=== PATIENT | female | born 1955 | race Caucasian/White ===

== ENCOUNTER 2020-02-20 12:52 | Outpatient (REF) | payer MEDICARE, SELFPAY ==
[2020-02-20 13:05] LABS: MANUAL DIFF FLAG NO
[2020-02-20 13:08] LABS: Basophils Absolute Auto 0.2 X10*3/uL (0.0-0.2); Basophils Percent Auto 1.4 % (0-2); Eosinophils Absolute Auto 0.2 X10*3/uL (0.0-0.4); Eosinophils Percent Auto 1.5 % (0-4); Hematocrit 47.5 % (37-47); Hemoglobin 14.9 g/dl (12.0-16.0); Imm Gran Abs Auto 0.06 X10*3/uL (0.00-0.03); Imm Gran Pct Auto 0.5 % (0.0-0.4); Lymphocytes Absolute Auto 1.4 X10*3/uL (1.2-4.9); Lymphocytes Percent Auto 12.2 % (20-40); Mean Corpuscular HGB Conc 31.4 g/dl (31.0-35.0); Mean Corpuscular Hemoglobin 28.6 pg (27.0-33.0); Mean Corpuscular Volume 91.2 fL (80-98); Mean Platelet Volume 10.5 fL (9.4-12.3); Monocytes Absolute Auto 0.3 X10*3/uL (0.1-1.2); Monocytes Percent Auto 2.2 % (2-11); Neutrophils Absolute Auto 9.5 X10*3/uL (2.0-8.3); Neutrophils Percent Auto 82.2 % (45-73); Platelet Count 366 X10*3/uL (160-400); Red Blood Count 5.21 X10*6/uL (4.20-5.50); Red Cell Distribution Width 15.9 % (11.0-16.0); White Blood Count 11.5 X10*3/uL (4.8-10.8)
[2020-02-20 13:35] LABS: Alanine Aminotransferase 29 U/L (0-31); Albumin Level 4.4 g/dL (3.5-5.0); Alkaline Phosphatase 66 U/L (39-117); Anion Gap 12 (12-20); Aspartate Amino Transferase 17 U/L (5-31); Bilirubin Total 0.9 mg/dL (0.0-1.0); Blood Urea Nitrogen 15 mg/dL (9-16); Carbon Dioxide 27 mmol/L (22-29); Chloride 104 mmol/L (96-108); Estimated Glomerular Filt Rate > 60; Glucose Random 114 mg/dL (60-115); Potassium 4.1 mmol/l (3.3-5.1); Sodium 139 mmol/L (135-145); Total Protein 6.7 g/dL (6.5-8.0)
--- NOTE | 2020-03-27 15:14 | PC.NURSE ---
Dr Cardozo scheduled patient for a GI appt with Emi Sotelo for 04/04/2020 at 9:30am. I called and spoke with patient, gave her the time and details and the providers name- patient is ok with this and is very grateful for Dr Cardozo.
== END 2020-02-20 12:53 | disposition home or self-care (01) ==
LOC: HO.BBR 12:52
PROVIDERS: Visit Provider Internal Medicine Medical Oncology
DX: D75.1 Secondary polycythemia (principal)
CPT/HCPCS: 36415; 80053; 85018; 85025; 99195

== ENCOUNTER 2020-03-31 12:46 | Outpatient (REF) | payer MEDICARE, SELFPAY | END 2020-03-31 12:47 | disposition home or self-care (01) | LOC: HO.BBR 12:46 | PROVIDERS: Visit Provider Internal Medicine Medical Oncology | DX: D75.1 Secondary polycythemia (principal) | CPT/HCPCS: 36415; 85018; 99195 ==

== ENCOUNTER → 2020-04-04 09:11 | Outpatient (BNVA) | payer MEDICARE, SELFPAY | PROVIDERS: PCP Internal Medicine; Referring Provider Internal Medicine; Visit Provider Nurse Practitioner | DX: K62.5 Hemorrhage of anus and rectum (principal); R19.5 Other fecal abnormalities; K64.4 Residual hemorrhoidal skin tags; Z86.010 Personal history of colon polyps; Z85.43 Personal history of malignant neoplasm of ovary | CPT/HCPCS: Q3014 ==

== ENCOUNTER 2020-05-27 11:07 | Day surgery (SDC) | payer MEDICARE, SELFPAY ==
[2020-05-22 10:20] VITALS: BMI 37.4
--- NOTE | 2020-05-26 09:24 | HO.ANESPROP2 ---
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 Thrombocytosis Family History Family History Father Heart disease Myocardial infarction Mother HTN (hypertension) Sister Polycythemia vera Surgical History Surgical History History of back surgery (~2017) History of esophagogastroduodenoscopy (EGD) (~2011) Hx of colonoscopy (~2012) Hx of nasal polypectomy Hx of oophorectomy (~2009) Social History Social History Alcohol intake: current Alcohol intake frequency: does not drink Smoking Status: Current every day smoker Tobacco Type: E-Cigarette Smoked in Last 30 Days: Yes Smoking Quit Date: quit cigarettes 2009-currently vapes Use of substances other than those prescribed or required for medical reasons: No Advance Directives Information Provided: No Recently lost weight without trying: No Meds Allergies Allergy/AdvReac Type Severity Reaction Status Date / Time mold AdvReac Intermediate GI UPSET Verified 05/27/20 11:24 animal dander AdvReac Mild NASAL Verified 05/27/20 11:24 STUFFY Home Medications Medication Instructions Recorded Confirmed Type aspirin [Aspir-81] 81 mg PO DAILY 03/27/20 05/22/20 History diazepam 1 tab PO BEDTIME 03/27/20 05/22/20 History gabapentin 2 cap PO BEDTIME 03/27/20 05/22/20 History hydroxyurea 500 mg PO BID 03/27/20 05/22/20 History lisinopril 20 mg PO DAILY 03/27/20 05/22/20 History sertraline 50 mg PO QAM 03/27/20 05/22/20 History trazodone 50 mg PO BEDTIME 03/27/20 05/22/20 History Exam Exam Date and Time: May 26, 2020 0924 Height,Weight and Vital Signs: Height 5 ft 7 in Weight 108.409 kg Pertinent Lab Results Pertinent Lab Results: Laboratory Tests 02/20/20 02/20/20 13:03 13:03 WBC 11.5 H Hgb 14.9 Hct 47.5 H Plt Count 366 Sodium 139 Potassium 4.1 Chloride 104 Carbon Dioxide 27 BUN 15 Creatinine 0.81 Assessment and Plan Assessment Anesthesia Assessment: Chart Reviewed Documented by User: Porsche Buchanan 05/27/20 11:47 PMFSH Past Medical History Medical History Arthritis Back pain Depression HTN (hypertension) 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 Thrombocytosis Family History Family History Father Heart disease Myocardial infarction Mother HTN (hypertension) Sister Polycythemia vera Surgical History Surgical History History of back surgery (~2017) History of esophagogastroduodenoscopy (EGD) (~2011) Hx of colonoscopy (~2012) Hx of nasal polypectomy Hx of oophorectomy (~2009) Social History Social History Alcohol intake: current Alcohol intake frequency: does not drink Smoking Status: Current every day smoker Tobacco Type: E-Cigarette Smoked in Last 30 Days: Yes Smoking Quit Date: quit cigarettes 2009-currently vapes Use of substances other than those prescribed or required for medical reasons: No Advance Directives Information Provided: No Recently lost weight without trying: No Meds Allergies Allergy/AdvReac Type Severity Reaction Status Date / Time mold AdvReac Intermediate GI UPSET Verified 05/27/20 11:24 animal dander AdvReac Mild NASAL Verified 05/27/20 11:24 STUFFY Home Medications Medication Instructions Recorded Confirmed Type aspirin [Aspir-81] 81 mg PO DAILY 03/27/20 05/22/20 History diazepam 1 tab PO BEDTIME 03/27/20 05/22/20 History gabapentin 2 cap PO BEDTIME 03/27/20 05/22/20 History hydroxyurea 500 mg PO BID 03/27/20 05/22/20 History lisinopril 20 mg PO DAILY 03/27/20 05/22/20 History sertraline 50 mg PO QAM 03/27/20 05/22/20 History trazodone 50 mg PO BEDTIME 03/27/20 05/22/20 History Exam Airway Mallampati Class: II TM Dist: >3cm Neck ROM: Full Loose/Missing/Broken Teeth: No Heart: RRR Lungs: CTA Assessment and Plan Assessment Anesthesia Assessment: Anesthesia Plan Discussed and Chart Reviewed Final Anesthetic Review NPO: Yes ASA Class: II Final Preanesthetic Review: Meds/Allgs Chart Reviewed, Consent Obtained/Reviewed and Anes Risks/Benef Reviewed Patient Risk: Low Procedure Risk: Low Anesthetic Plan Anesthetic Plan: MAC: Disposition: Standard PACU
[2020-05-27 11:42] VITALS: BP 140/88; PULSE 90; RESP 18; TEMP 36.4; O2SAT 94
[2020-05-27] MEDS: Lactated Ringers 1,000 ML 100 ML IVCONT (11:54)
--- NOTE | 2020-05-27 12:03 | W.PM.OPN ---
Operative Note Operative Note Date of Service: 05/27/20 Narrative: Pre-op diagnosis: Colon cancer screening, rectal bleeding, intermittent diarrhea Post-op diagnosis: other (Diverticulosis and hemorrhoids) Procedure: COLONOSCOPY TO CECUM WITH BIOPSIES Consent: Indications for the procedure and potential complications of bleeding, perforation, reaction to medications and missed diagnosis were discussed with the patient and informed consent was obtained. Instrument: Olympus PCF H 190 L variable stiffness pediatric colonoscope Monitoring: Vital signs and clinical assessment, intermittent blood pressure monitoring, continuous EKG monitoring, Pulse oximetry and Carbon Dioxide monitoring were done throughout the procedure. Colon withdrawl time was 28 minutes. Procedure: The patient was placed in the left lateral decubitis position and pre-procedure medications were administered. After a digital rectal examination of the ano-rectum, the video colonoscope was inserted into the rectum and advanced through the colon to the cecum. The colonoscope was slowly withdrawn in a retrograde panoramic fashion and the colon mucosa was carefully examined including a retroflexed view of the rectum. Findings and interventions are described below. Procedure Difficulty: There was spasm and luminal narrowing with a sharp turn at 25 to 30 cms which was navigated with some difficulty Findings: Terminal Ileum: Distal 5 cms was examined and appeared normal. Random biopsies were obtained Cecum: Normal Ascending Colon: Normal Transverse Colon: Normal Descending Colon: Moderate diverticulosis. Sigmoid Colon: Severe diverticulosis with luminal narrowing Rectum: Normal Ano-rectum: Large inflammed and internal hemorrhoids with an ulcer on one hemorrhoid - likely source of rectal bleeding Colon preparation: Good after some irrigation Impression and Post Procedure Diagnosis: Colonoscopy Findings: No polyps were detected. Random biopsies were obtained from the colon and TI to look for IBD/microscopic colitis. Moderate to severe diverticulosis seen in the left colon Large inflammed hemorrhoids with an ulcer on retroflexed exam - likely source of patient's rectal bleeding. Plan: Await pathology results Patient has an appointment on 06/03/20 in the GI Clinic with Emi Sotelo NP. Repeat Colonoscopy in 10 yrs. Above findings were reviewed with the patient and Hemorrhoids and diverticulosis handouts were given in the discharge area. Pt was advised to use Hydrcortisone cream, psyllium powder and sitz baths daily. If bleeding persists, she can be referred to Dr Jones for Band ligation of hemorrhoids. Surgeon: Chip Narvaez MD Anesthesia: MAC (DR Buchanan and [employer]ESS[employer] Cuff) Estimated blood loss (mL): 0 Pathology: other (A. TI, B. Random colon bx) Condition: stable Disposition: PACU
--- NOTE | 2020-05-27 12:03 | MHC.SHP ---
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 Thrombocytosis) History of Previous Operations: Relevant previous surgery/procedure and date(s) (History of back surgery (~2017) History of esophagogastroduodenoscopy (EGD) (~2011) Hx of colonoscopy (~2012) Hx of nasal polypectomy Hx of oophorectomy (~2009)) Allergies: Allergies Allergy/AdvReac Type Severity Reaction Status Date / Time mold AdvReac Intermediate GI UPSET Verified 05/27/20 11:24 animal dander AdvReac Mild NASAL Verified 05/27/20 11:24 STUFFY Review of Systems Sugical H&P ROS: Negative: Constitution, Cardiovascular and Respiratory and Yes, Specify: Gastrointestinal (Intermittent diarrhea and rectal bleeding) Exam Surgical H&P Exam: Normal: Heart, Normal: Lungs, Normal: Extremities and Normal: Abdomen Plan Diagnosis/Plan: Unchanged I have reviewed the history and physical and performed a pertinent physical examination on my patient. No changes have occurred unless specified.
[2020-05-27 13:05] VITALS: BP 94/59; PULSE 85; RESP 18; TEMP 36.2; O2SAT 95
[2020-05-27 13:17] VITALS: BP 108/66; PULSE 72; RESP 18; O2SAT 98
[2020-05-27 13:33] VITALS: BP 126/53; PULSE 80; RESP 18; TEMP 36.2; O2SAT 96
--- NOTE | 2020-05-27 14:12 | HO.POSTANES ---
Post Anesthesia Evaluation Post Anesthesia Evaluation Vital Signs: Vital Signs Temp Pulse Resp BP Pulse Ox 05/27/20 13:33 97.2 F 80 18 126/53 L 96 05/27/20 13:17 72 18 108/66 98 05/27/20 13:05 97.2 F 85 18 94/59 L 95 05/27/20 11:42 97.5 F 90 18 140/88 H 94 Anesthesia: Monitored Mental Status: Awake Pain Control: Satisfactory Nausea/Vomiting: None Hydration: Adequate Anesthesia-Related Issues: No Anes. Related Issues
== END 2020-05-27 13:55 ==
LOC: HO.SSS 11:07
PROVIDERS: PCP Internal Medicine; Visit Provider Internal Medicine Gastroenterology
PROC: 0DJD8ZZ Inspection of Lower Intestinal Tract, Via Natural or Artificial Opening Endoscopic (ICD-10-PCS; CPT 45378; principal; 2020-05-27 12:30)
DX: Z12.11 Encounter for screening for malignant neoplasm of colon (principal); K57.30 Diverticulosis of large intestine without perforation or abscess without bleeding; K64.8 Other hemorrhoids; I10 Essential (primary) hypertension; D45 Polycythemia vera; F32.9 Major depressive disorder, single episode, unspecified; F17.290 Nicotine dependence, other tobacco product, uncomplicated; Z79.82 Long term (current) use of aspirin; Z79.899 Other long term (current) drug therapy
CPT/HCPCS: G0121; 88305; J2250

== ENCOUNTER → 2020-06-03 15:46 | Outpatient (BNVA) | payer MEDICARE, SELFPAY | PROVIDERS: PCP Internal Medicine; Visit Provider Nurse Practitioner | DX: K64.9 Unspecified hemorrhoids (principal); K57.30 Diverticulosis of large intestine without perforation or abscess without bleeding | CPT/HCPCS: Q3014 ==

== ENCOUNTER 2020-06-12 12:49 | Outpatient (REF) | payer MEDICARE, SELFPAY | END 2020-06-12 12:50 | disposition home or self-care (01) | LOC: HO.BBR 12:49 | PROVIDERS: Visit Provider Internal Medicine Medical Oncology | DX: D75.1 Secondary polycythemia (principal) | CPT/HCPCS: 36415; 85014; 85018; 99195 ==

== ENCOUNTER 2020-07-15 12:46 | Outpatient (REF) | payer MEDICARE, SELFPAY | END 2020-07-15 12:47 | disposition home or self-care (01) | LOC: HO.BBR 12:46 | PROVIDERS: Visit Provider Internal Medicine Medical Oncology | DX: D75.1 Secondary polycythemia (principal) | CPT/HCPCS: 85018; 99195; Q3014 ==

== ENCOUNTER 2020-08-15 12:34 | Outpatient (REF) | payer MEDICARE, SELFPAY ==
[2020-08-15 12:59] LABS: Basophils Absolute Auto 0.3 X10*3/uL (0.0-0.2); Basophils Percent Auto 1.3 % (0-2); Eosinophils Absolute Auto 0.5 X10*3/uL (0.0-0.4); Eosinophils Percent Auto 1.9 % (0-4); Hematocrit 47.6 % (37-47); Hemoglobin 13.9 g/dl (12.0-16.0); Imm Gran Abs Auto 0.25 X10*3/uL (0.00-0.03); Imm Gran Pct Auto 1.1 % (0.0-0.4); Lymphocytes Absolute Auto 1.6 X10*3/uL (1.2-4.9); Lymphocytes Percent Auto 6.8 % (20-40); MANUAL DIFF FLAG SCAN; Mean Corpuscular HGB Conc 29.2 g/dl (31.0-35.0); Mean Corpuscular Hemoglobin 23.6 pg (27.0-33.0); Mean Corpuscular Volume 80.8 fL (80-98); Mean Platelet Volume 10.9 fL (9.4-12.3); Monocytes Absolute Auto 0.5 X10*3/uL (0.1-1.2); Monocytes Percent Auto 2.3 % (2-11); Neutrophils Absolute Auto 20.3 X10*3/uL (2.0-8.3); Neutrophils Percent Auto 86.6 % (45-73); Platelet Count 436 X10*3/uL (160-400); Red Blood Count 5.89 X10*6/uL (4.20-5.50); Red Cell Distribution Width 16.3 % (11.0-16.0); SCAN SMEAR FLAG 1; White Blood Count 23.4 X10*3/uL (4.8-10.8)
[2020-08-15 13:20] LABS: SLIDE REVIEW VERIFIED
[2020-08-15 13:25] LABS: Alanine Aminotransferase 41 U/L (0-31); Albumin Level 4.2 g/dL (3.5-5.0); Alkaline Phosphatase 87 U/L (39-117); Anion Gap 11 (12-20); Aspartate Amino Transferase 21 U/L (5-31); Bilirubin Total 1.2 mg/dL (0.0-1.0); Blood Urea Nitrogen 18 mg/dL (9-16); Calcium 8.9 mg/dL (8.4-10.2); Carbon Dioxide 29 mmol/L (22-29); Chloride 103 mmol/L (96-108); Estimated Glomerular Filt Rate > 60; Glucose Random 102 mg/dL (60-115); Potassium 4.3 mmol/L (3.3-5.1); Sodium 139 mmol/L (135-145); Total Protein 6.6 g/dL (6.5-8.0)
== END 2020-08-15 12:35 | disposition home or self-care (01) ==
LOC: HO.BBR 12:34
PROVIDERS: Visit Provider Internal Medicine Medical Oncology
DX: D75.1 Secondary polycythemia (principal)
CPT/HCPCS: 36415; 80053; 85018; 85025

== ENCOUNTER 2020-09-19 14:34 | Outpatient (REF) | payer MEDICARE, SELFPAY ==
[2020-09-19 14:51] LABS: MANUAL DIFF FLAG NO
[2020-09-19 14:55] LABS: Basophils Absolute Auto 0.4 X10*3/uL (0.0-0.2); Basophils Percent Auto 1.6 % (0-2); Eosinophils Absolute Auto 0.5 X10*3/uL (0.0-0.4); Eosinophils Percent Auto 2.1 % (0-4); Hematocrit 49.4 % (37-47); Hemoglobin 14.5 g/dl (12.0-16.0); Imm Gran Abs Auto 0.23 X10*3/uL (0.00-0.03); Lymphocytes Absolute Auto 1.8 X10*3/uL (1.2-4.9); Lymphocytes Percent Auto 7.8 % (20-40); Mean Corpuscular HGB Conc 29.4 g/dl (31.0-35.0); Mean Corpuscular Hemoglobin 23.7 pg (27.0-33.0); Mean Corpuscular Volume 80.6 fL (80-98); Mean Platelet Volume 11.3 fL (9.4-12.3); Monocytes Absolute Auto 0.6 X10*3/uL (0.1-1.2); Monocytes Percent Auto 2.8 % (2-11); Neutrophils Absolute Auto 19.6 X10*3/uL (2.0-8.3); Neutrophils Percent Auto 84.7 % (45-73); Platelet Count 298 X10*3/uL (160-400); Red Blood Count 6.13 X10*6/uL (4.20-5.50); Red Cell Distribution Width 18.1 % (11.0-16.0); White Blood Count 23.1 X10*3/uL (4.8-10.8)
[2020-09-19 15:31] LABS: Anion Gap 14 (12-20); Blood Urea Nitrogen 15 mg/dL (9-16); Calcium 9.2 mg/dL (8.4-10.2); Carbon Dioxide 26 mmol/L (22-29); Chloride 103 mmol/L (96-108); Estimated Glomerular Filt Rate > 60; Glucose Random 86 mg/dL (60-115); Potassium 4.4 mmol/L (3.3-5.1); Sodium 139 mmol/L (135-145)
== END 2020-09-19 14:35 | disposition home or self-care (01) ==
LOC: HO.BBR 14:34
PROVIDERS: Visit Provider Internal Medicine Medical Oncology
DX: D75.1 Secondary polycythemia (principal)
CPT/HCPCS: 36415; 80048; 85018; 85025; 99195

== ENCOUNTER → 2020-10-23 12:41 | Outpatient (BNV) | payer MEDICARE, SELFPAY | PROVIDERS: PCP Internal Medicine; Visit Provider Internal Medicine Medical Oncology | DX: D45 Polycythemia vera (principal); Z86.718 Personal history of other venous thrombosis and embolism; Z79.01 Long term (current) use of anticoagulants | CPT/HCPCS: 99213; 99214 ==

== ENCOUNTER 2020-10-23 13:28 | Outpatient (REF) | payer MEDICARE, SELFPAY | END 2020-10-23 13:29 | disposition home or self-care (01) | LOC: HO.BBR 13:28 | PROVIDERS: Visit Provider Internal Medicine Medical Oncology | DX: D45 Polycythemia vera (principal) | CPT/HCPCS: 99195 ==

== ENCOUNTER 2020-12-17 12:47 | Outpatient (REF) | payer MEDICARE, SELFPAY ==
[2020-12-17 13:08] LABS: Basophils Absolute Auto 0.4 X10*3/uL (0.0-0.2); Basophils Percent Auto 1.5 % (0-2); Eosinophils Absolute Auto 0.4 X10*3/uL (0.0-0.4); Eosinophils Percent Auto 1.6 % (0-4); Hematocrit 46.3 % (37-47); Hemoglobin 13.7 g/dl (12.0-16.0); Imm Gran Abs Auto 0.25 X10*3/uL (0.00-0.03); Lymphocytes Absolute Auto 1.9 X10*3/uL (1.2-4.9); Lymphocytes Percent Auto 7.3 % (20-40); MANUAL DIFF FLAG SCAN; Mean Corpuscular HGB Conc 29.6 g/dl (31.0-35.0); Mean Corpuscular Hemoglobin 23.4 pg (27.0-33.0); Mean Platelet Volume 10.5 fL (9.4-12.3); Monocytes Absolute Auto 0.6 X10*3/uL (0.1-1.2); Monocytes Percent Auto 2.3 % (2-11); Neutrophils Absolute Auto 22.4 X10*3/uL (2.0-8.3); Neutrophils Percent Auto 86.3 % (45-73); Platelet Count 350 X10*3/uL (160-400); Red Blood Count 5.86 X10*6/uL (4.20-5.50); Red Cell Distribution Width 17.7 % (11.0-16.0); SCAN SMEAR FLAG 1; White Blood Count 25.9 X10*3/uL (4.8-10.8)
[2020-12-17 13:26] LABS: SLIDE REVIEW VERIFIED
[2020-12-17 14:33] LABS: Alanine Aminotransferase 28 U/L (0-31); Albumin Level 4.2 g/dL (3.5-5.0); Alkaline Phosphatase 85 U/L (39-117); Anion Gap 13 (12-20); Aspartate Amino Transferase 19 U/L (5-31); Bilirubin Total 1.2 mg/dL (0.0-1.0); Blood Urea Nitrogen 22 mg/dL (9-16); Calcium 9.2 mg/dL (8.4-10.2); Carbon Dioxide 25 mmol/L (22-29); Chloride 104 mmol/L (96-108); Estimated Glomerular Filt Rate 54; Glucose Random 85 mg/dL (60-115); Potassium 4.3 mmol/L (3.3-5.1); Sodium 138 mmol/L (135-145); Total Protein 6.4 g/dL (6.5-8.0)
== END 2020-12-17 12:48 | disposition home or self-care (01) ==
LOC: HO.BBR 12:47
PROVIDERS: PCP Internal Medicine; Visit Provider Internal Medicine Medical Oncology
DX: D75.1 Secondary polycythemia (principal)
CPT/HCPCS: 36415; 80053; 85018; 85025; 99195

== ENCOUNTER 2021-01-16 12:45 | Outpatient (REF) | payer MEDICARE, SELFPAY ==
[2021-01-16 13:08] LABS: Basophils Absolute Auto 0.3 X10*3/uL (0.0-0.2); Basophils Percent Auto 1.4 % (0-2); Eosinophils Absolute Auto 0.3 X10*3/uL (0.0-0.4); Eosinophils Percent Auto 1.3 % (0-4); Hematocrit 48.8 % (37-47); Hemoglobin 14.6 g/dl (12.0-16.0); Imm Gran Abs Auto 0.24 X10*3/uL (0.00-0.03); Imm Gran Pct Auto 1.1 % (0.0-0.4); Lymphocytes Absolute Auto 1.3 X10*3/uL (1.2-4.9); MANUAL DIFF FLAG SCAN; Mean Corpuscular HGB Conc 29.9 g/dl (31.0-35.0); Mean Corpuscular Hemoglobin 24.2 pg (27.0-33.0); Mean Corpuscular Volume 80.8 fL (80-98); Mean Platelet Volume 10.1 fL (9.4-12.3); Monocytes Absolute Auto 0.4 X10*3/uL (0.1-1.2); Neutrophils Absolute Auto 19.8 X10*3/uL (2.0-8.3); Neutrophils Percent Auto 88.2 % (45-73); Platelet Count 259 X10*3/uL (160-400); Red Blood Count 6.04 X10*6/uL (4.20-5.50); Red Cell Distribution Width 19.5 % (11.0-16.0); SCAN SMEAR FLAG 1; White Blood Count 22.4 X10*3/uL (4.8-10.8)
[2021-01-16 13:35] LABS: SLIDE REVIEW VERIFIED
[2021-01-16 13:42] LABS: Alanine Aminotransferase 32 U/L (0-31); Albumin Level 4.3 g/dL (3.5-5.0); Alkaline Phosphatase 93 U/L (39-117); Anion Gap 12 (12-20); Aspartate Amino Transferase 21 U/L (5-31); Bilirubin Total 1.6 mg/dL (0.0-1.0); Blood Urea Nitrogen 14 mg/dL (9-16); Calcium 9.4 mg/dL (8.4-10.2); Carbon Dioxide 26 mmol/L (22-29); Chloride 103 mmol/L (96-108); Estimated Glomerular Filt Rate > 60; Glucose Random 114 mg/dL (60-115); Potassium 4.1 mmol/L (3.3-5.1); Sodium 137 mmol/L (135-145); Total Protein 6.5 g/dL (6.5-8.0)
== END 2021-01-16 12:46 | disposition home or self-care (01) ==
LOC: HO.BBR 12:45
PROVIDERS: Visit Provider Internal Medicine Medical Oncology
DX: D75.1 Secondary polycythemia (principal)
CPT/HCPCS: 36415; 80053; 85014; 85018; 85025; 99195

== ENCOUNTER 2021-02-27 11:21 | Outpatient (REF) | payer MEDICARE, SELFPAY ==
[2021-02-27 11:38] LABS: Basophils Absolute Auto 0.3 X10*3/uL (0.0-0.2); Basophils Percent Auto 1.3 % (0-2); Eosinophils Absolute Auto 0.3 X10*3/uL (0.0-0.4); Eosinophils Percent Auto 1.3 % (0-4); Hematocrit 46.1 % (37-47); Hemoglobin 13.7 g/dl (12.0-16.0); Imm Gran Abs Auto 0.12 X10*3/uL (0.00-0.03); Imm Gran Pct Auto 0.6 % (0.0-0.4); Lymphocytes Absolute Auto 1.3 X10*3/uL (1.2-4.9); Lymphocytes Percent Auto 6.4 % (20-40); MANUAL DIFF FLAG SCAN; Mean Corpuscular HGB Conc 29.7 g/dl (31.0-35.0); Mean Corpuscular Volume 84.3 fL (80-98); Mean Platelet Volume 10.7 fL (9.4-12.3); Monocytes Absolute Auto 0.4 X10*3/uL (0.1-1.2); Monocytes Percent Auto 1.8 % (2-11); Neutrophils Absolute Auto 17.4 X10*3/uL (2.0-8.3); Neutrophils Percent Auto 88.6 % (45-73); Platelet Count 196 X10*3/uL (160-400); Red Blood Count 5.47 X10*6/uL (4.20-5.50); Red Cell Distribution Width 18.5 % (11.0-16.0); SCAN SMEAR FLAG 1; White Blood Count 19.6 X10*3/uL (4.8-10.8)
[2021-02-27 12:00] LABS: SLIDE REVIEW VERIFIED
[2021-02-27 12:21] LABS: Alanine Aminotransferase 23 U/L (0-31); Albumin Level 4.1 g/dL (3.5-5.0); Alkaline Phosphatase 77 U/L (39-117); Anion Gap 12 (12-20); Aspartate Amino Transferase 16 U/L (5-31); Bilirubin Total 1.1 mg/dL (0.0-1.0); Blood Urea Nitrogen 12 mg/dL (9-16); Calcium 9.2 mg/dL (8.4-10.2); Carbon Dioxide 26 mmol/L (22-29); Chloride 107 mmol/L (96-108); Estimated Glomerular Filt Rate > 60; Glucose Random 117 mg/dL (60-115); Potassium 3.9 mmol/L (3.3-5.1); Sodium 141 mmol/L (135-145); Total Protein 6.4 g/dL (6.5-8.0)
== END 2021-02-27 11:22 | disposition home or self-care (01) ==
LOC: HO.BBR 11:21
PROVIDERS: PCP Internal Medicine; Visit Provider Internal Medicine Medical Oncology
DX: D75.1 Secondary polycythemia (principal)
CPT/HCPCS: 36415; 80053; 85025

== ENCOUNTER 2021-03-30 09:41 | Outpatient (REF) | payer MEDICARE, SELFPAY ==
[2021-03-30 09:56] LABS: Basophils Absolute Auto 0.3 X10*3/uL (0.0-0.2); Basophils Percent Auto 1.3 % (0-2); Eosinophils Absolute Auto 0.4 X10*3/uL (0.0-0.4); Eosinophils Percent Auto 1.6 % (0-4); Hematocrit 53.2 % (37.0-47.0); Hemoglobin 15.9 g/dl (12.0-16.0); Imm Gran Pct Auto 1.2 % (0.0-0.4); Lymphocytes Absolute Auto 1.4 X10*3/uL (1.2-4.9); Lymphocytes Percent Auto 5.4 % (20-40); MANUAL DIFF FLAG SCAN; Mean Corpuscular HGB Conc 29.9 g/dl (31.0-35.0); Mean Corpuscular Hemoglobin 26.2 pg (27.0-33.0); Mean Corpuscular Volume 87.6 fL (80.0-98.0); Mean Platelet Volume 11.4 fL (9.4-12.3); Monocytes Absolute Auto 0.5 X10*3/uL (0.1-1.2); Monocytes Percent Auto 1.8 % (2-11); Neutrophils Absolute Auto 22.3 x10*3/uL (2.0-8.3); Neutrophils Percent Auto 88.7 % (45-73); Platelet Count 323 X10*3/uL (160-400); Red Blood Count 6.07 X10*6/uL (4.20-5.50); Red Cell Distribution Width 18.4 % (11.0-16.0); SCAN SMEAR FLAG 1; White Blood Count 25.1 X10*3/uL (4.8-10.8)
[2021-03-30 10:31] LABS: SLIDE REVIEW VERIFIED
[2021-03-30 11:02] LABS: Alanine Aminotransferase 35 U/L (0-31); Albumin Level 4.1 g/dL (3.5-5.0); Alkaline Phosphatase 106 U/L (39-117); Anion Gap 16 (12-20); Aspartate Amino Transferase 31 U/L (5-31); Bilirubin Total 1.1 mg/dL (0.0-1.0); Blood Urea Nitrogen 8 mg/dL (9-16); Calcium 8.7 mg/dL (8.4-10.2); Carbon Dioxide 23 mmol/L (22-29); Chloride 106 mmol/L (96-108); Estimated Glomerular Filt Rate > 60; Glucose Random 110 mg/dL (60-115); Potassium 4.1 mmol/L (3.3-5.1); Sodium 141 mmol/L (135-145); Total Protein 6.5 g/dL (6.5-8.0)
== END 2021-03-30 09:42 | disposition home or self-care (01) ==
LOC: HO.BBR 09:41
PROVIDERS: Visit Provider Internal Medicine Medical Oncology
DX: D75.1 Secondary polycythemia (principal)
CPT/HCPCS: 36415; 80053; 85014; 85018; 85025; 99195

== ENCOUNTER 2021-05-18 08:57 | Outpatient (REF) | payer MEDICARE, SELFPAY ==
[2021-05-18 09:12] LABS: Basophils Absolute Auto 0.4 X10*3/uL (0.0-0.2); Basophils Percent Auto 1.6 % (0-2); Eosinophils Absolute Auto 0.5 X10*3/uL (0.0-0.4); Eosinophils Percent Auto 1.8 % (0-4); Hematocrit 53.1 % (37.0-47.0); Imm Gran Abs Auto 0.33 X10*3/uL (0.00-0.03); Imm Gran Pct Auto 1.3 % (0.0-0.4); Lymphocytes Absolute Auto 1.5 X10*3/uL (1.2-4.9); Lymphocytes Percent Auto 5.8 % (20-40); MANUAL DIFF FLAG SCAN; Mean Corpuscular HGB Conc 30.1 g/dl (31.0-35.0); Mean Corpuscular Hemoglobin 25.3 pg (27.0-33.0); Mean Corpuscular Volume 83.9 fL (80.0-98.0); Mean Platelet Volume 10.9 fL (9.4-12.3); Monocytes Absolute Auto 0.5 X10*3/uL (0.1-1.2); Neutrophils Absolute Auto 22.7 x10*3/uL (2.0-8.3); Neutrophils Percent Auto 87.5 % (45-73); Platelet Count 399 X10*3/uL (160-400); Red Blood Count 6.33 X10*6/uL (4.20-5.50); Red Cell Distribution Width 15.4 % (11.0-16.0); SCAN SMEAR FLAG 1; White Blood Count 25.9 X10*3/uL (4.8-10.8)
[2021-05-18 09:36] LABS: SLIDE REVIEW VERIFIED
[2021-05-18 10:37] LABS: Alanine Aminotransferase 28 U/L (0-31); Alkaline Phosphatase 98 U/L (39-117); Anion Gap 12 (12-20); Aspartate Amino Transferase 20 U/L (5-31); Bilirubin Total 0.8 mg/dL (0.0-1.0); Blood Urea Nitrogen 11 mg/dL (9-16); Carbon Dioxide 27 mmol/L (22-29); Chloride 106 mmol/L (96-108); Estimated Glomerular Filt Rate > 60; Glucose Random 76 mg/dL (60-115); Potassium 4.6 mmol/L (3.3-5.1); Sodium 140 mmol/L (135-145); Total Protein 6.6 g/dL (6.5-8.0)
== END 2021-05-18 08:58 | disposition home or self-care (01) ==
LOC: HO.BBR 08:57
PROVIDERS: Visit Provider Internal Medicine Medical Oncology
DX: D75.1 Secondary polycythemia (principal)
CPT/HCPCS: 36415; 80053; 85014; 85018; 85025; 99195

== ENCOUNTER 2021-06-19 09:48 | Outpatient (REF) | payer MEDICARE, SELFPAY ==
[2021-06-19 10:02] LABS: Basophils Absolute Auto 0.4 X10*3/uL (0.0-0.2); Basophils Percent Auto 1.6 % (0-2); Eosinophils Absolute Auto 0.5 X10*3/uL (0.0-0.4); Eosinophils Percent Auto 1.9 % (0-4); Hematocrit 52.2 % (37.0-47.0); Hemoglobin 15.3 g/dl (12.0-16.0); Imm Gran Abs Auto 0.24 X10*3/uL (0.00-0.03); Imm Gran Pct Auto 0.9 % (0.0-0.4); Lymphocytes Absolute Auto 1.5 X10*3/uL (1.2-4.9); Lymphocytes Percent Auto 6.1 % (20-40); MANUAL DIFF FLAG SCAN; Mean Corpuscular HGB Conc 29.3 g/dl (31.0-35.0); Mean Corpuscular Hemoglobin 23.8 pg (27.0-33.0); Mean Corpuscular Volume 81.3 fL (80.0-98.0); Mean Platelet Volume 11.1 fL (9.4-12.3); Monocytes Absolute Auto 0.6 X10*3/uL (0.1-1.2); Monocytes Percent Auto 2.5 % (2-11); Platelet Count 396 X10*3/uL (160-400); Red Blood Count 6.42 X10*6/uL (4.20-5.50); Red Cell Distribution Width 15.9 % (11.0-16.0); SCAN SMEAR FLAG 1; White Blood Count 25.3 X10*3/uL (4.8-10.8)
[2021-06-19 10:21] LABS: SLIDE REVIEW VERIFIED
[2021-06-19 10:30] LABS: Alanine Aminotransferase 26 U/L (0-31); Albumin Level 4.3 g/dL (3.5-5.0); Alkaline Phosphatase 87 U/L (39-117); Anion Gap 13 (12-20); Aspartate Amino Transferase 18 U/L (5-31); Bilirubin Total 1.2 mg/dL (0.0-1.0); Blood Urea Nitrogen 12 mg/dL (9-16); Calcium 9.4 mg/dL (8.4-10.2); Carbon Dioxide 25 mmol/L (22-29); Chloride 105 mmol/L (96-108); Estimated Glomerular Filt Rate > 60; Glucose Random 95 mg/dL (60-115); Potassium 4.5 mmol/L (3.3-5.1); Sodium 138 mmol/L (135-145); Total Protein 6.9 g/dL (6.5-8.0)
== END 2021-06-19 09:49 | disposition home or self-care (01) ==
LOC: HO.BBR 09:48
PROVIDERS: Visit Provider Internal Medicine Medical Oncology
DX: D75.1 Secondary polycythemia (principal)
CPT/HCPCS: 36415; 80053; 85018; 85025; 99195

== ENCOUNTER 2021-07-24 09:45 | Outpatient (REF) | payer MEDICARE, SELFPAY ==
[2021-07-24 10:02] LABS: Basophils Absolute Auto 0.4 X10*3/uL (0.0-0.2); Basophils Percent Auto 1.5 % (0-2); Eosinophils Absolute Auto 0.4 X10*3/uL (0.0-0.4); Eosinophils Percent Auto 1.6 % (0-4); Hematocrit 49.7 % (37.0-47.0); Hemoglobin 14.6 g/dl (12.0-16.0); Imm Gran Abs Auto 0.26 X10*3/uL (0.00-0.03); Lymphocytes Absolute Auto 1.4 X10*3/uL (1.2-4.9); Lymphocytes Percent Auto 5.4 % (20-40); MANUAL DIFF FLAG SCAN; Mean Corpuscular HGB Conc 29.4 g/dl (31.0-35.0); Mean Corpuscular Hemoglobin 23.6 pg (27.0-33.0); Mean Corpuscular Volume 80.4 fL (80.0-98.0); Mean Platelet Volume 11.1 fL (9.4-12.3); Monocytes Absolute Auto 0.6 X10*3/uL (0.1-1.2); Monocytes Percent Auto 2.3 % (2-11); Neutrophils Absolute Auto 23.4 x10*3/uL (2.0-8.3); Neutrophils Percent Auto 88.2 % (45-73); Platelet Count 281 X10*3/uL (160-400); Red Blood Count 6.18 X10*6/uL (4.20-5.50); Red Cell Distribution Width 18.1 % (11.0-16.0); SCAN SMEAR FLAG 1; White Blood Count 26.5 X10*3/uL (4.8-10.8)
[2021-07-24 10:33] LABS: Alanine Aminotransferase 37 U/L (0-31); Albumin Level 4.2 g/dL (3.5-5.0); Alkaline Phosphatase 98 U/L (39-117); Anion Gap 11 (12-20); Aspartate Amino Transferase 27 U/L (5-31); Bilirubin Total 1.8 mg/dL (0.0-1.0); Blood Urea Nitrogen 12 mg/dL (9-16); Calcium 9.4 mg/dL (8.4-10.2); Carbon Dioxide 28 mmol/L (22-29); Chloride 103 mmol/L (96-108); Estimated Glomerular Filt Rate > 60; Glucose Random 83 mg/dL (60-115); Potassium 4.7 mmol/L (3.3-5.1); Sodium 137 mmol/L (135-145); Total Protein 6.7 g/dL (6.5-8.0)
[2021-07-24 10:49] LABS: SLIDE REVIEW VERIFIED
== END 2021-07-24 09:46 | disposition home or self-care (01) ==
LOC: HO.BBR 09:45
PROVIDERS: Visit Provider Internal Medicine Medical Oncology
DX: D75.1 Secondary polycythemia (principal)
CPT/HCPCS: 36415; 80053; 85014; 85018; 85025; 99195

== ENCOUNTER 2021-08-18 10:39 | Outpatient (REF) | payer MEDICARE, SELFPAY ==
--- NOTE | ~2021-08-18 | US_ITS ---
EXAMINATION: US VENOUS ULTRASOUND WITH DOPPLER LOWER EXTREMITY, LEFT CLINICAL INFORMATION: Follow-up DVT. COMPARISON: None. TECHNIQUE: Ultrasound of the deep veins is performed from the hip to the calf with compression sonography and color and pulse Doppler assessment. Spectral analysis with color-flow imaging is performed. FINDINGS: There is near-occlusive thrombus in the left superficial femoral and popliteal veins. The left common femoral vein is patent. The left profunda and greater saphenous vein in the upper thigh are patent. The left posterior tibial vein is patent. The left peroneal vein is not well seen. No Samuel's cyst is seen. US/US venous duplex LE LT IMPRESSION: Near-occlusive thrombus in the left superficial femoral and popliteal veins. Findings were communicated to Dr. Cardozo by the technologist at the completion of the exam.
== END 2021-08-18 10:40 | disposition home or self-care (01) ==
LOC: HO.US 10:39
PROVIDERS: Visit Provider Internal Medicine Medical Oncology
DX: I82.412 Acute embolism and thrombosis of left femoral vein (principal); I82.432 Acute embolism and thrombosis of left popliteal vein
CPT/HCPCS: 93971

== ENCOUNTER 2021-08-18 11:28 | Emergency (ER) | payer MEDICARE, SELFPAY | END 2021-08-18 13:17 | disposition left against medical advice (07) | LOC: HO.ED 13:13 | PROVIDERS: Emergency Provider Emergency Medicine; PCP Internal Medicine | DX: Z86.718 Personal history of other venous thrombosis and embolism (principal) ==

== ENCOUNTER 2021-09-02 08:53 | Outpatient (REF) | payer MEDICARE, SELFPAY ==
[2021-09-02 09:17] LABS: Basophils Absolute Auto 0.4 X10*3/uL (0.0-0.2); Basophils Percent Auto 1.4 % (0-2); Eosinophils Absolute Auto 0.3 X10*3/uL (0.0-0.4); Eosinophils Percent Auto 1.2 % (0-4); Hematocrit 47.6 % (37.0-47.0); Hemoglobin 14.1 g/dl (12.0-16.0); Imm Gran Abs Auto 0.29 X10*3/uL (0.00-0.03); Lymphocytes Absolute Auto 1.3 X10*3/uL (1.2-4.9); Lymphocytes Percent Auto 4.3 % (20-40); MANUAL DIFF FLAG SCAN; Mean Corpuscular HGB Conc 29.6 g/dl (31.0-35.0); Mean Corpuscular Hemoglobin 23.9 pg (27.0-33.0); Mean Corpuscular Volume 80.5 fL (80.0-98.0); Monocytes Absolute Auto 0.6 X10*3/uL (0.1-1.2); Monocytes Percent Auto 2.1 % (2-11); Neutrophils Absolute Auto 26.1 x10*3/uL (2.0-8.3); Platelet Count 357 X10*3/uL (160-400); Red Blood Count 5.91 X10*6/uL (4.20-5.50); Red Cell Distribution Width 18.2 % (11.0-16.0); SCAN SMEAR FLAG 1
[2021-09-02 09:19] LABS: Mean Platelet Volume 11.7 fL (9.4-12.3)
[2021-09-02 09:53] LABS: Alanine Aminotransferase 34 U/L (0-31); Albumin Level 4.2 g/dL (3.5-5.0); Alkaline Phosphatase 84 U/L (39-117); Anion Gap 13 (12-20); Aspartate Amino Transferase 27 U/L (5-31); Bilirubin Total 1.5 mg/dL (0.0-1.0); Blood Urea Nitrogen 11 mg/dL (9-16); Calcium 9.4 mg/dL (8.4-10.2); Carbon Dioxide 25 mmol/L (22-29); Chloride 104 mmol/L (96-108); Estimated Glomerular Filt Rate > 60; Glucose Random 101 mg/dL (60-115); Potassium 4.3 mmol/L (3.3-5.1); Sodium 138 mmol/L (135-145); Total Protein 6.6 g/dL (6.5-8.0)
[2021-09-02 10:36] LABS: SLIDE REVIEW VERIFIED
== END 2021-09-02 08:54 | disposition home or self-care (01) ==
LOC: HO.BBR 08:53
PROVIDERS: Visit Provider Internal Medicine Medical Oncology
DX: D75.1 Secondary polycythemia (principal)
CPT/HCPCS: 36415; 80053; 85014; 85018; 85025; 99195

== ENCOUNTER 2021-10-13 09:46 | Outpatient (REF) | payer MEDICARE, SELFPAY ==
[2021-10-13 10:10] LABS: Basophils Absolute Auto 0.4 X10*3/uL (0.0-0.2); Basophils Percent Auto 1.3 % (0-2); Eosinophils Absolute Auto 0.4 X10*3/uL (0.0-0.4); Eosinophils Percent Auto 1.5 % (0-4); Hematocrit 46.5 % (37.0-47.0); Hemoglobin 13.5 g/dl (12.0-16.0); Imm Gran Abs Auto 0.26 X10*3/uL (0.00-0.03); Lymphocytes Absolute Auto 1.3 X10*3/uL (1.2-4.9); Lymphocytes Percent Auto 4.8 % (20-40); MANUAL DIFF FLAG SCAN; Mean Corpuscular Hemoglobin 23.9 pg (27.0-33.0); Mean Corpuscular Volume 82.3 fL (80.0-98.0); Mean Platelet Volume 11.8 fL (9.4-12.3); Monocytes Absolute Auto 0.6 X10*3/uL (0.1-1.2); Monocytes Percent Auto 2.2 % (2-11); Neutrophils Absolute Auto 23.4 x10*3/uL (2.0-8.3); Neutrophils Percent Auto 89.2 % (45-73); Platelet Count 310 X10*3/uL (160-400); Red Blood Count 5.65 X10*6/uL (4.20-5.50); Red Cell Distribution Width 16.8 % (11.0-16.0); SCAN SMEAR FLAG 1; White Blood Count 26.2 X10*3/uL (4.8-10.8)
[2021-10-13 10:42] LABS: Alanine Aminotransferase 37 U/L (0-31); Albumin Level 4.2 g/dL (3.5-5.0); Alkaline Phosphatase 86 U/L (39-117); Anion Gap 13 (12-20); Aspartate Amino Transferase 26 U/L (5-31); Bilirubin Total 1.5 mg/dL (0.0-1.0); Blood Urea Nitrogen 13 mg/dL (9-16); Calcium 9.3 mg/dL (8.4-10.2); Carbon Dioxide 27 mmol/L (22-29); Chloride 104 mmol/L (96-108); Estimated Glomerular Filt Rate 56; Glucose Random 100 mg/dL (60-115); Potassium 4.9 mmol/L (3.3-5.1); Sodium 139 mmol/L (135-145); Total Protein 6.6 g/dL (6.5-8.0)
[2021-10-13 11:10] LABS: SLIDE REVIEW VERIFIED
== END 2021-10-13 09:47 | disposition home or self-care (01) ==
LOC: HO.BBR 09:46
PROVIDERS: Visit Provider Internal Medicine Medical Oncology
DX: D45 Polycythemia vera (principal)
CPT/HCPCS: 36415; 80053; 85018; 85025; 99195

== ENCOUNTER 2021-11-12 09:50 | Outpatient (REF) | payer MEDICARE, SELFPAY ==
[2021-11-12 10:08] LABS: Basophils Absolute Auto 0.3 X10*3/uL (0.0-0.2); Basophils Percent Auto 1.5 % (0-2); Eosinophils Absolute Auto 0.4 X10*3/uL (0.0-0.4); Eosinophils Percent Auto 1.5 % (0-4); Hematocrit 48.7 % (37.0-47.0); Hemoglobin 14.5 g/dl (12.0-16.0); Imm Gran Abs Auto 0.34 X10*3/uL (0.00-0.03); Imm Gran Pct Auto 1.5 % (0.0-0.4); Lymphocytes Absolute Auto 1.4 X10*3/uL (1.2-4.9); Lymphocytes Percent Auto 5.8 % (20-40); MANUAL DIFF FLAG SCAN; Mean Corpuscular HGB Conc 29.8 g/dl (31.0-35.0); Mean Corpuscular Hemoglobin 24.4 pg (27.0-33.0); Mean Corpuscular Volume 81.8 fL (80.0-98.0); Mean Platelet Volume 11.5 fL (9.4-12.3); Monocytes Absolute Auto 0.5 X10*3/uL (0.1-1.2); Neutrophils Absolute Auto 20.4 x10*3/uL (2.0-8.3); Neutrophils Percent Auto 87.7 % (45-73); Platelet Count 330 X10*3/uL (160-400); Red Blood Count 5.95 X10*6/uL (4.20-5.50); Red Cell Distribution Width 17.6 % (11.0-16.0); SCAN SMEAR FLAG 1; White Blood Count 23.3 X10*3/uL (4.8-10.8)
[2021-11-12 10:35] LABS: SLIDE REVIEW VERIFIED
[2021-11-12 11:58] LABS: Alanine Aminotransferase 36 U/L (0-31); Albumin Level 4.3 g/dL (3.5-5.0); Alkaline Phosphatase 92 U/L (39-117); Anion Gap 16 (12-20); Aspartate Amino Transferase 26 U/L (5-31); Bilirubin Total 1.8 mg/dL (0.0-1.0); Blood Urea Nitrogen 11 mg/dL (9-16); Calcium 8.8 mg/dL (8.4-10.2); Carbon Dioxide 24 mmol/L (22-29); Chloride 102 mmol/L (96-108); Estimated Glomerular Filt Rate > 60; Glucose Random 94 mg/dL (60-115); Potassium 4.5 mmol/L (3.3-5.1); Sodium 137 mmol/L (135-145); Total Protein 6.7 g/dL (6.5-8.0)
== END 2021-11-12 09:51 | disposition home or self-care (01) ==
LOC: HO.BBR 09:50
PROVIDERS: Visit Provider Internal Medicine Medical Oncology
DX: D75.1 Secondary polycythemia (principal)
CPT/HCPCS: 36415; 80053; 85018; 85025; 99195

== ENCOUNTER 2021-12-15 08:49 | Outpatient (REF) | payer MEDICARE, SELFPAY ==
[2021-12-15 09:06] LABS: Basophils Absolute Auto 0.3 X10*3/uL (0.0-0.2); Basophils Percent Auto 1.3 % (0-2); Eosinophils Absolute Auto 0.3 X10*3/uL (0.0-0.4); Eosinophils Percent Auto 1.2 % (0-4); Hematocrit 48.2 % (37.0-47.0); Hemoglobin 14.1 g/dl (12.0-16.0); Imm Gran Abs Auto 0.27 X10*3/uL (0.00-0.03); Imm Gran Pct Auto 1.1 % (0.0-0.4); Lymphocytes Absolute Auto 1.3 X10*3/uL (1.2-4.9); Lymphocytes Percent Auto 5.3 % (20-40); MANUAL DIFF FLAG SCAN; Mean Corpuscular HGB Conc 29.3 g/dl (31.0-35.0); Mean Corpuscular Hemoglobin 24.3 pg (27.0-33.0); Mean Corpuscular Volume 83.1 fL (80.0-98.0); Mean Platelet Volume 10.7 fL (9.4-12.3); Monocytes Absolute Auto 0.4 X10*3/uL (0.1-1.2); Monocytes Percent Auto 1.8 % (2-11); Neutrophils Absolute Auto 21.3 x10*3/uL (2.0-8.3); Neutrophils Percent Auto 89.3 % (45-73); Platelet Count 287 X10*3/uL (160-400); Red Cell Distribution Width 17.9 % (11.0-16.0); SCAN SMEAR FLAG 1; White Blood Count 23.9 X10*3/uL (4.8-10.8)
[2021-12-15 09:39] LABS: SLIDE REVIEW VERIFIED
[2021-12-15 10:45] LABS: Alanine Aminotransferase 41 U/L (0-31); Albumin Level 4.2 g/dL (3.5-5.0); Alkaline Phosphatase 99 U/L (39-117); Anion Gap 16 (12-20); Aspartate Amino Transferase 31 U/L (5-31); Bilirubin Total 1.6 mg/dL (0.0-1.0); Blood Urea Nitrogen 12 mg/dL (9-16); Calcium 8.9 mg/dL (8.4-10.2); Carbon Dioxide 22 mmol/L (22-29); Chloride 105 mmol/L (96-108); Estimated Glomerular Filt Rate > 60; Glucose Random 91 mg/dL (60-115); Potassium 4.2 mmol/L (3.3-5.1); Sodium 139 mmol/L (135-145); Total Protein 6.5 g/dL (6.5-8.0)
== END 2021-12-15 08:50 | disposition home or self-care (01) ==
LOC: HO.BBR 08:49
PROVIDERS: Visit Provider Internal Medicine Medical Oncology
DX: D75.1 Secondary polycythemia (principal)
CPT/HCPCS: 36415; 80053; 85018; 85025; 99195

== ENCOUNTER 2022-01-26 13:54 | Outpatient (REF) | payer MEDICARE, SELFPAY ==
[2022-01-26 14:16] LABS: Basophils Absolute Auto 0.4 X10*3/uL (0.0-0.2); Basophils Percent Auto 1.3 % (0-2); Eosinophils Absolute Auto 0.3 X10*3/uL (0.0-0.4); Eosinophils Percent Auto 1.2 % (0-4); Hematocrit 51.9 % (37.0-47.0); Hemoglobin 15.2 g/dl (12.0-16.0); Imm Gran Abs Auto 0.37 X10*3/uL (0.00-0.03); Imm Gran Pct Auto 1.3 % (0.0-0.4); Lymphocytes Absolute Auto 1.6 X10*3/uL (1.2-4.9); Lymphocytes Percent Auto 5.8 % (20-40); MANUAL DIFF FLAG SCAN; Mean Corpuscular HGB Conc 29.3 g/dl (31.0-35.0); Mean Corpuscular Hemoglobin 24.2 pg (27.0-33.0); Mean Corpuscular Volume 82.8 fL (80.0-98.0); Mean Platelet Volume 10.5 fL (9.4-12.3); Monocytes Absolute Auto 0.5 X10*3/uL (0.1-1.2); Monocytes Percent Auto 1.7 % (2-11); NRBC Pct Auto 0.1 /100WBC (0.0-0.2); Neutrophils Absolute Auto 24.4 x10*3/uL (2.0-8.3); Neutrophils Percent Auto 88.7 % (45-73); Platelet Count 420 X10*3/uL (160-400); Red Blood Count 6.27 X10*6/uL (4.20-5.50); Red Cell Distribution Width 17.7 % (11.0-16.0); SCAN SMEAR FLAG 1; White Blood Count 27.6 X10*3/uL (4.8-10.8)
[2022-01-26 14:37] LABS: SLIDE REVIEW VERIFIED
[2022-01-26 15:16] LABS: Alanine Aminotransferase 42 U/L (0-31); Albumin Level 4.4 g/dL (3.5-5.0); Alkaline Phosphatase 102 U/L (39-117); Anion Gap 15 (12-20); Aspartate Amino Transferase 33 U/L (5-31); Bilirubin Total 1.5 mg/dL (0.0-1.0); Blood Urea Nitrogen 18 mg/dL (9-16); Calcium 9.5 mg/dL (8.4-10.2); Carbon Dioxide 25 mmol/L (22-29); Chloride 103 mmol/L (96-108); Estimated Glomerular Filt Rate > 60; Glucose Random 101 mg/dL (60-115); Potassium 4.3 mmol/L (3.3-5.1); Sodium 139 mmol/L (135-145); Total Protein 6.8 g/dL (6.5-8.0)
== END 2022-01-26 13:55 | disposition home or self-care (01) ==
LOC: HO.BBR 13:54
PROVIDERS: Visit Provider Internal Medicine Medical Oncology
DX: D75.1 Secondary polycythemia (principal)
CPT/HCPCS: 36415; 80053; 85014; 85018; 85025; 99195

== ENCOUNTER 2022-02-26 13:46 | Outpatient (REF) | payer MEDICARE, SELFPAY ==
[2022-02-26 14:00] LABS: Basophils Absolute Auto 0.3 X10*3/uL (0.0-0.2); Basophils Percent Auto 1.2 % (0-2); Eosinophils Absolute Auto 0.3 X10*3/uL (0.0-0.4); Eosinophils Percent Auto 1.1 % (0-4); Hematocrit 49.2 % (37.0-47.0); Hemoglobin 14.4 g/dl (12.0-16.0); Imm Gran Abs Auto 0.18 X10*3/uL (0.00-0.03); Imm Gran Pct Auto 0.7 % (0.0-0.4); Lymphocytes Absolute Auto 1.8 X10*3/uL (1.2-4.9); Lymphocytes Percent Auto 6.8 % (20-40); Mean Corpuscular HGB Conc 29.3 g/dl (31.0-35.0); Mean Corpuscular Hemoglobin 24.1 pg (27.0-33.0); Mean Corpuscular Volume 82.3 fL (80.0-98.0); Mean Platelet Volume 11.1 fL (9.4-12.3); Monocytes Absolute Auto 0.4 X10*3/uL (0.1-1.2); Monocytes Percent Auto 1.5 % (2-11); Neutrophils Absolute Auto 23.1 x10*3/uL (2.0-8.3); Platelet Count 350 X10*3/uL (160-400); Red Blood Count 5.98 X10*6/uL (4.20-5.50); Red Cell Distribution Width 15.7 % (11.0-16.0); SCAN SMEAR FLAG 1
[2022-02-26 14:04] LABS: MANUAL DIFF FLAG NO; Neutrophils Percent Auto 88.7 % (45-73)
[2022-02-26 14:31] LABS: Alanine Aminotransferase 39 U/L (0-31); Albumin Level 4.4 g/dL (3.5-5.0); Alkaline Phosphatase 84 U/L (39-117); Anion Gap 15 (12-20); Aspartate Amino Transferase 29 U/L (5-31); Bilirubin Total 1.4 mg/dL (0.0-1.0); Blood Urea Nitrogen 20 mg/dL (9-16); Calcium 9.1 mg/dL (8.4-10.2); Carbon Dioxide 24 mmol/L (22-29); Chloride 103 mmol/L (96-108); Estimated Glomerular Filt Rate > 60; Glucose Random 113 mg/dL (60-115); Potassium 4.4 mmol/L (3.3-5.1); Sodium 138 mmol/L (135-145); Total Protein 6.6 g/dL (6.5-8.0)
== END 2022-02-26 13:47 | disposition home or self-care (01) ==
LOC: HO.BBR 13:46
PROVIDERS: Visit Provider Internal Medicine Medical Oncology
DX: D75.1 Secondary polycythemia (principal)
CPT/HCPCS: 36415; 80053; 85025; 99195

== ENCOUNTER 2022-03-29 10:43 | Outpatient (REF) | payer MEDICARE, SELFPAY ==
[2022-03-29 11:00] LABS: Basophils Absolute Auto 0.5 X10*3/uL (0.0-0.2); Basophils Percent Auto 1.6 % (0-2); Eosinophils Absolute Auto 0.4 X10*3/uL (0.0-0.4); Eosinophils Percent Auto 1.3 % (0-4); Hematocrit 48.6 % (37.0-47.0); Hemoglobin 14.1 g/dl (12.0-16.0); Imm Gran Abs Auto 0.39 X10*3/uL (0.00-0.03); Imm Gran Pct Auto 1.4 % (0.0-0.4); Lymphocytes Absolute Auto 1.4 X10*3/uL (1.2-4.9); Lymphocytes Percent Auto 4.7 % (20-40); MANUAL DIFF FLAG SCAN; Mean Corpuscular Hemoglobin 23.6 pg (27.0-33.0); Mean Corpuscular Volume 81.3 fL (80.0-98.0); Mean Platelet Volume 11.2 fL (9.4-12.3); Monocytes Absolute Auto 0.5 X10*3/uL (0.1-1.2); Monocytes Percent Auto 1.9 % (2-11); Neutrophils Absolute Auto 25.5 x10*3/uL (2.0-8.3); Neutrophils Percent Auto 89.1 % (45-73); Platelet Count 331 X10*3/uL (160-400); Red Blood Count 5.98 X10*6/uL (4.20-5.50); Red Cell Distribution Width 15.2 % (11.0-16.0); SCAN SMEAR FLAG 1; White Blood Count 28.6 X10*3/uL (4.8-10.8)
[2022-03-29 11:19] LABS: SLIDE REVIEW VERIFIED
[2022-03-29 12:54] LABS: Alanine Aminotransferase 41 U/L (0-31); Albumin Level 4.5 g/dL (3.5-5.0); Alkaline Phosphatase 101 U/L (39-117); Anion Gap 17 (12-20); Aspartate Amino Transferase 29 U/L (5-31); Bilirubin Total 1.3 mg/dL (0.0-1.0); Blood Urea Nitrogen 15 mg/dL (9-16); Calcium 9.1 mg/dL (8.4-10.2); Carbon Dioxide 24 mmol/L (22-29); Chloride 104 mmol/L (96-108); Estimated Glomerular Filt Rate > 60; Glucose Random 77 mg/dL (60-115); Potassium 4.1 mmol/L (3.3-5.1); Sodium 141 mmol/L (135-145); Total Protein 6.7 g/dL (6.5-8.0)
== END 2022-03-29 10:44 | disposition home or self-care (01) ==
LOC: HO.BBR 10:43
PROVIDERS: Visit Provider Internal Medicine Medical Oncology
DX: D75.1 Secondary polycythemia (principal)
CPT/HCPCS: 36415; 80053; 85014; 85018; 85025; 99195

== ENCOUNTER 2022-05-31 09:53 | Outpatient (REF) | payer MEDICARE, SELFPAY ==
[2022-05-31 10:25] LABS: Basophils Absolute Auto 0.4 X10*3/uL (0.0-0.2); Basophils Percent Auto 1.6 % (0-2); Eosinophils Absolute Auto 0.4 X10*3/uL (0.0-0.4); Eosinophils Percent Auto 1.6 % (0-4); Hematocrit 46.1 % (37.0-47.0); Hemoglobin 13.5 g/dl (12.0-16.0); Imm Gran Abs Auto 0.23 X10*3/uL (0.00-0.03); Imm Gran Pct Auto 0.9 % (0.0-0.4); Lymphocytes Absolute Auto 1.4 X10*3/uL (1.2-4.9); Lymphocytes Percent Auto 5.8 % (20-40); MANUAL DIFF FLAG SCAN; Mean Corpuscular HGB Conc 29.3 g/dl (31.0-35.0); Mean Corpuscular Hemoglobin 23.2 pg (27.0-33.0); Mean Corpuscular Volume 79.3 fL (80.0-98.0); Mean Platelet Volume 10.6 fL (9.4-12.3); Monocytes Absolute Auto 0.4 X10*3/uL (0.1-1.2); Monocytes Percent Auto 1.6 % (2-11); Neutrophils Absolute Auto 21.7 x10*3/uL (2.0-8.3); Platelet Count 316 X10*3/uL (160-400); Red Blood Count 5.81 X10*6/uL (4.20-5.50); Red Cell Distribution Width 17.3 % (11.0-16.0); SCAN SMEAR FLAG 1; White Blood Count 24.5 X10*3/uL (4.8-10.8)
[2022-05-31 10:45] LABS: Neutrophils Percent Auto 88.5 % (45-73)
[2022-05-31 10:46] LABS: SLIDE REVIEW VERIFIED
[2022-05-31 11:08] LABS: Alanine Aminotransferase 26 U/L (0-31); Alkaline Phosphatase 86 U/L (39-117); Anion Gap 10 (12-20); Aspartate Amino Transferase 22 U/L (5-31); Bilirubin Total 1.4 mg/dL (0.0-1.0); Blood Urea Nitrogen 14 mg/dL (9-16); Calcium 8.9 mg/dL (8.4-10.2); Carbon Dioxide 26 mmol/L (22-29); Chloride 106 mmol/L (96-108); Estimated Glomerular Filt Rate > 60; Glucose Random 94 mg/dL (60-115); Potassium 4.2 mmol/L (3.3-5.1); Sodium 138 mmol/L (135-145); Total Protein 6.1 g/dL (6.5-8.0)
== END 2022-05-31 09:54 | disposition home or self-care (01) ==
LOC: HO.BBR 09:53
PROVIDERS: PCP Internal Medicine; Visit Provider Internal Medicine Medical Oncology
DX: D75.1 Secondary polycythemia (principal)
CPT/HCPCS: 36415; 80053; 85025

== ENCOUNTER 2022-07-28 10:49 | Outpatient (REF) | payer MEDICARE, SELFPAY ==
[2022-07-28 11:13] LABS: Basophils Absolute Auto 0.4 X10*3/uL (0.0-0.2); Basophils Percent Auto 1.6 % (0-2); Eosinophils Absolute Auto 0.4 X10*3/uL (0.0-0.4); Eosinophils Percent Auto 1.9 % (0-4); Hematocrit 48.6 % (37.0-47.0); Hemoglobin 14.2 g/dl (12.0-16.0); Imm Gran Abs Auto 0.25 X10*3/uL (0.00-0.03); Imm Gran Pct Auto 1.1 % (0.0-0.4); Lymphocytes Absolute Auto 1.4 X10*3/uL (1.2-4.9); Lymphocytes Percent Auto 6.1 % (20-40); MANUAL DIFF FLAG SCAN; Mean Corpuscular HGB Conc 29.2 g/dl (31.0-35.0); Mean Corpuscular Volume 82.2 fL (80.0-98.0); Mean Platelet Volume 10.9 fL (9.4-12.3); Monocytes Absolute Auto 0.5 X10*3/uL (0.1-1.2); Neutrophils Percent Auto 87.3 % (45-73); Platelet Count 246 X10*3/uL (160-400); Red Blood Count 5.91 X10*6/uL (4.20-5.50); Red Cell Distribution Width 18.6 % (11.0-16.0); SCAN SMEAR FLAG 1; White Blood Count 22.9 X10*3/uL (4.8-10.8)
[2022-07-28 11:50] LABS: SLIDE REVIEW VERIFIED
[2022-07-28 12:20] LABS: Alanine Aminotransferase 32 U/L (0-31); Albumin Level 4.1 g/dL (3.5-5.0); Alkaline Phosphatase 87 U/L (39-117); Anion Gap 12 (12-20); Aspartate Amino Transferase 26 U/L (5-31); Bilirubin Total 1.9 mg/dL (0.0-1.0); Blood Urea Nitrogen 10 mg/dL (9-16); Calcium 8.8 mg/dL (8.4-10.2); Carbon Dioxide 28 mmol/L (22-29); Chloride 106 mmol/L (96-108); Estimated Glomerular Filt Rate > 60; Glucose Random 84 mg/dL (60-115); Potassium 3.9 mmol/L (3.3-5.1); Sodium 142 mmol/L (135-145); Total Protein 6.2 g/dL (6.5-8.0)
== END 2022-07-28 10:50 | disposition home or self-care (01) ==
LOC: HO.BBR 10:49
PROVIDERS: PCP Internal Medicine; Visit Provider Internal Medicine Medical Oncology
DX: D75.1 Secondary polycythemia (principal)
CPT/HCPCS: 36415; 80053; 85014; 85018; 85025; 99195

== ENCOUNTER 2022-09-06 12:02 | Outpatient (REF) | payer MEDICARE, SELFPAY ==
--- NOTE | ~2022-09-06 | US_ITS ---
EXAMINATION: US VENOUS ULTRASOUND WITH DOPPLER LOWER EXTREMITY, LEFT CLINICAL INFORMATION: Follow-up DVT COMPARISON: Previous exam August 2021 TECHNIQUE: Ultrasound of the deep veins is performed from the hip to the calf with compression sonography and color and pulse Doppler assessment. Spectral analysis with color-flow imaging is performed. FINDINGS: There is chronic appearing nonocclusive thrombus seen against the wall of the in the superficial femoral vein in the proximal and mid thigh. There is no evidence of acute DVT. The left common femoral, profunda, superficial femoral vein in the distal thigh, popliteal and visualized posterior tibial veins are patent. The left peroneal veins not seen. There is no Samuel's cyst. US/US venous duplex LE LT IMPRESSION: Chronic appearing thrombus seen in the superficial femoral vein in the proximal and mid thigh.
== END 2022-09-06 12:03 | disposition home or self-care (01) ==
LOC: HO.US 12:02
PROVIDERS: PCP Internal Medicine; Visit Provider Internal Medicine Medical Oncology
DX: I82.402 Acute embolism and thrombosis of unspecified deep veins of left lower extremity (principal)
CPT/HCPCS: 93971

== ENCOUNTER 2022-10-04 12:01 | Outpatient (REF) | payer MEDICARE, SELFPAY | END 2022-10-04 12:02 | disposition home or self-care (01) | LOC: HO.BBR 12:01 | PROVIDERS: PCP Internal Medicine; Visit Provider Internal Medicine Medical Oncology | DX: D75.1 Secondary polycythemia (principal) | CPT/HCPCS: 85018; 99195 ==

== ENCOUNTER 2022-11-04 11:01 | Outpatient (REF) | payer MEDICARE, SELFPAY | END 2022-11-04 11:02 | disposition home or self-care (01) | LOC: HO.BBR 11:01 | PROVIDERS: PCP Internal Medicine; Visit Provider Internal Medicine Medical Oncology | DX: D75.1 Secondary polycythemia (principal) | CPT/HCPCS: 85018 ==

== ENCOUNTER 2022-12-01 11:01 | Outpatient (REF) | payer MEDICARE, SELFPAY | END 2022-12-01 11:02 | disposition home or self-care (01) | LOC: HO.BBR 11:01 | PROVIDERS: PCP Internal Medicine; Visit Provider Internal Medicine Medical Oncology | DX: D75.1 Secondary polycythemia (principal) | CPT/HCPCS: 85014; 85018; 99195 ==

== ENCOUNTER 2023-01-04 10:59 | Outpatient (REF) | payer MEDICARE, SELFPAY | END 2023-01-04 11:00 | disposition home or self-care (01) | LOC: HO.BBR 10:59 | PROVIDERS: Visit Provider Internal Medicine Medical Oncology | DX: D75.1 Secondary polycythemia (principal) | CPT/HCPCS: 85018 ==

== ENCOUNTER 2023-02-08 11:12 | Outpatient (REF) | payer MEDICARE, SELFPAY | END 2023-02-08 11:13 | disposition home or self-care (01) | LOC: HO.BBR 11:12 | PROVIDERS: PCP Internal Medicine; Visit Provider Internal Medicine Medical Oncology | DX: D75.1 Secondary polycythemia (principal) | CPT/HCPCS: 85018; 99195 ==

== ENCOUNTER 2023-03-21 14:42 | Outpatient (REF) | payer MEDICARE, SELFPAY | END 2023-03-21 14:43 | disposition home or self-care (01) | LOC: HO.BBR 14:42 | PROVIDERS: Visit Provider Internal Medicine Medical Oncology | DX: D75.1 Secondary polycythemia (principal) | CPT/HCPCS: 85014; 85018; 99195 ==

== ENCOUNTER 2023-04-21 13:43 | Outpatient (REF) | payer MEDICARE, SELFPAY ==
[2023-04-21 14:05] LABS: Basophils Absolute Auto 0.3 X10*3/uL (0.0-0.2); Basophils Percent Auto 1.3 % (0-2); Eosinophils Absolute Auto 0.4 X10*3/uL (0.0-0.4); Eosinophils Percent Auto 1.7 % (0-4); Hematocrit 51.2 % (37.0-47.0); Hemoglobin 14.9 g/dl (12.0-16.0); Imm Gran Abs Auto 0.21 X10*3/uL (0.00-0.03); Imm Gran Pct Auto 0.9 % (0.0-0.4); Lymphocytes Absolute Auto 1.3 X10*3/uL (1.2-4.9); Lymphocytes Percent Auto 5.6 % (20-40); MANUAL DIFF FLAG SCAN; Mean Corpuscular HGB Conc 29.1 g/dl (31.0-35.0); Mean Corpuscular Volume 85.9 fL (80.0-98.0); Mean Platelet Volume 10.8 fL (9.4-12.3); Monocytes Absolute Auto 0.5 X10*3/uL (0.1-1.2); Neutrophils Absolute Auto 20.4 x10*3/uL (2.0-8.3); Neutrophils Percent Auto 88.5 % (45-73); Platelet Count 319 X10*3/uL (160-400); Red Blood Count 5.96 X10*6/uL (4.20-5.50); Red Cell Distribution Width 17.7 % (11.0-16.0); SCAN SMEAR FLAG 1
[2023-04-21 14:22] LABS: SLIDE REVIEW VERIFIED
== END 2023-04-21 13:44 | disposition home or self-care (01) ==
LOC: HO.BBR 13:43
PROVIDERS: PCP Internal Medicine; Visit Provider Internal Medicine Medical Oncology
DX: D45 Polycythemia vera (principal)
CPT/HCPCS: 36415; 85018; 85025; 99195

== ENCOUNTER 2023-05-10 15:14 | Outpatient (AMB) | payer MEDICARE, SELFPAY ==
--- NOTE | 2023-05-10 15:17 | MHC.OFFVIS ---
Intake Vital Signs 05/10/23 15:18 Height 5 ft 7 in Weight 234 lb BMI 36.6 BP 122/86 Blood Pressure Location Rt brachial Position Sitting Pulse 90 Pulse Source Pulse Oximeter Pulse Oximetry (%) 95 Oxygen Delivery Method Room Air Intake Visit Reasons: [employer]/ Ref for PVD w/ chronic DVT Intake Note: Pt presents to the office today for a new patient visit for PVD w chronic DVT. Pt states she has left leg swelling and gets pain in the back of her leg. Pt states she also gets numbness and tingling in both feet. Allergies mold Adverse Reaction (Intermediate, Verified 05/10/23 15:20) GI UPSET animal dander Adverse Reaction (Mild, Verified 05/10/23 15:20) NASAL STUFFY HPI [employer]/ Ref for PVD w/ chronic DVT HPI Details Very pleasant 67-year-old female presents for evaluation regarding left lower extremity DVT. She has a very complex history inclusive of polycythemia vera. She reports that after COVID shot she developed significant swelling of the left lower extremity. Upon workup she was discovered to have a DVT. She had undergone anticoagulation with Eliquis. More recently she underwent a follow-up ultrasound evaluation in August of 2022 which demonstrated more of a chronic thrombus in the femoral vein. She reported significant swelling which appears to be doing relatively well. It has been affecting there daily activities including walking. It is noted more so in left leg. Patient denies any previous venous surgery or injections, she had been seen by Dr. Childress at [facility] where they did not follow-up on testing. In the meantime her insurance changed and she now presents to us Patient does have a DVT history as noted above Patient denies any history of phlebitis. Trial of compression includes - compressive wraps which she is compliant with and wears on a daily basis They now present for vascular evaluation regarding their varicose veins and left lower extremity DVT. [facility] Medical History Arthritis Back pain Depression HTN (hypertension) JAK2 V617F mutation Thrombocytosis P. vera Surgical History Hx of nasal polypectomy History of back surgery (~2017) Hx of oophorectomy (~2009) History of esophagogastroduodenoscopy (EGD) (~2011) Hx of colonoscopy (~2012) Family History Father Heart disease Myocardial infarction Mother HTN (hypertension) Sister Polycythemia vera Social History Household Members: Spouse Housing: House Are you a primary healthcare facility administrator to a significant other at home: No Do you presently have visiting nurse or other home services: No Alcohol intake: former Patient Tobacco Use Status: Former Tobacco user Quit Date: 04/14/2016 e-Cigarette/Vaping Use: Currently Using [employer] service: No Current occupational status: employed and disabled Current occupation: CAREGIVER Review of Systems Const Reports as per HPI ENT Reports no additional complaints Card Denies chest pain, Denies chest pain at rest and Denies chest pain with activity Resp Denies chest congestion and Denies cough GI Reports no additional complaints Musc Details: pain over varicosities, aching of lower extremities, swelling, cramping, heaviness and tiredness, itching Denies abnormal gait Skin/Breast Reports pruritus and Denies wounds Neuro Reports no additional complaints and Denies abnormal gait Psych Denies no additional complaints Physical Exam Vital Signs: Last Vital Signs Pulse 90 05/10/23 15:18 BP 122/86 05/10/23 15:18 Pulse Ox 95 05/10/23 15:18 Oxygen Delivery Method Room Air 05/10/23 15:18 BMI result Body Mass Index 36.6 Const General: cooperative, healthy appearing and comfortable Orientation/consciousness: oriented to person, oriented to place and oriented to time Neck Carotids: no bruits Chest Chest palpation & inspection: normal inspection of the chest and normal palpation of entire chest wall Resp Effort & Inspection: normal respiratory effort and able to speak in complete sentences Cardio Rate: regular rate Heart sounds: S1 normal heart sound present and S2 normal heart sound present Peripheral pulses: Peripheral pulses 2+ throughout GI Inspection: Yes normal to inspection Skin Other: +2 edema, large rope-like varicosities greater than 4 mm left calf CEAP Classification C4 - skin color changes Ep - Etiology Primary As - superficial veins P - reflux General skin exam: dry skin Neuro General: oriented to person, oriented to place and oriented to time Extrem Right lower extremity: full ROM, normal capillary refill and edema Left lower extremity: full ROM, normal capillary refill and edema Psych Mental Status: mental status grossly normal Results Reviewed Results Reviewed: Ultrasound dated 09/06/2022 demonstrates chronic thrombus in the left femoral all proximal and mid thigh. Written report and images were reviewed. This was compared to study from August of 2021. Assessment & Plan Assessment & Plan (1) Varicose veins of left lower extremity with inflammation: Code(s): I83.12 - Varicose veins of left lower extremity with inflammation Plan: In short patient has significant swelling of the left lower extremity. I have taken the liberty of ordering venous insufficiency testing to rule that out. In addition this will re-evaluate the status of that DVT as well. We did discuss routine conservative measures including compression elevation and exercise. She will follow up with us after testing. Thank you for allowing us to assist in her care. If there are any questions or concerns please do not hesitate to contact us. (2) Left leg DVT: Code(s): I82.402 - Acute embolism and thrombosis of unspecified deep veins of left lower extremity Qualifiers: Affected thrombotic vein of extremity: femoral Chronicity: chronic Qualified Code(s): I82.512 - Chronic embolism and thrombosis of left femoral vein Plan: In short patient has what appears to be a chronic left lower extremity DVT. Once again I will get a venous insufficiency testing which will cover both aspects of this. Pending results will discuss with Dr. Cardozo possible interventions if required. Thank you for allowing us to assist in her care. (3) PAD (peripheral artery disease): Code(s): I73.9 - Peripheral vascular disease, unspecified Plan: In her workup and documentation I did not see mention PA Kizzy and possible referral to Dr. Childress at [facility] vascular regarding this. When I did examine her I noted palpable dorsalis pedis and posterior tibial pulses. She did quit smoking in March of 2016 and she is a nondiabetic. At the current time I do not think that this is the source of her issues and I believe it is more venous. No further workup in terms of arterial testing is required at this time as she does have palpable pulses. Plan The patient had an opportunity to ask questions regarding the treatment plan. All questions were answered. Imaging studies, laboratory studies and physical exam results were discussed and reviewed in detail. No major barriers to understanding were identified. The patient expressed understanding and agreement with the above treatment plan. The patient is aware they should contact our office by phone for worsening of the current condition or the appearance of new symptoms. Thank you for allowing me to participate in the vascular care of this patient. If you have any questions or concerns regarding the treatment for the above condition please do not hesitate to contact me. The office telephone contact is [phone]. This note is constructed using voice recognition software. While every effort has been made to ensure accuracy, brass plater errors may have been included. Thank you for allowing me to participate in the care of your patient. Yours sincerely, Ken Jacques MD, FACS, R.P.V.I. Orders: Orders US venous duplex LE BI 1 Week I83.12 - Varicose veins of left lower extremity with inflammation Coding Level of Care Code Est Pt Level 4 (83989) Diagnoses Varicose veins of left lower extremity with inflammation I83.12 Chronic deep vein thrombosis (DVT) of femoral vein of left lower extremity I82.512 Affected thrombotic vein of extremity: femoral Chronicity: chronic PAD (peripheral artery disease) I73.9
[2023-05-10 15:18] VITALS: BP 122/86; PULSE 90; O2SAT 95; BMI 36.6
== END 2023-05-10 15:57 | disposition home or self-care (01) ==
PROVIDERS: PCP Internal Medicine; Visit Provider Surgery Vascular Surgery
DX: I83.12 Varicose veins of left lower extremity with inflammation (principal); I82.512 Chronic embolism and thrombosis of left femoral vein; I73.9 Peripheral vascular disease, unspecified
CPT/HCPCS: 99213

== ENCOUNTER → 2023-05-10 15:14 | Outpatient (BNVA) | payer MEDICARE, SELFPAY | PROVIDERS: PCP Internal Medicine; Visit Provider Surgery Vascular Surgery | DX: I83.12 Varicose veins of left lower extremity with inflammation (principal); I82.512 Chronic embolism and thrombosis of left femoral vein; I73.9 Peripheral vascular disease, unspecified | CPT/HCPCS: 99212 ==

== ENCOUNTER 2023-05-27 10:25 | Outpatient (REF) | payer MEDICARE, SELFPAY | END 2023-05-27 10:26 | disposition home or self-care (01) | LOC: HO.US 10:25 | PROVIDERS: PCP Internal Medicine; Visit Provider Surgery Vascular Surgery | DX: Z13.89 Encounter for screening for other disorder (principal) ==

== ENCOUNTER 2023-05-27 12:00 | Outpatient (REF) | payer MEDICARE, SELFPAY ==
--- NOTE | ~2023-05-27 | US_ITS ---
EXAMINATION: US LOWER EXTREMITY VENOUS (REFLUX EXAM), BILATERAL CLINICAL INDICATION: Chronic venous insufficiency with lower extremity varicose veins with inflammation. History of known left lower extremity deep venous thrombosis on Eliquis COMPARISON: Duplex ultrasound from 09/06/2022 TECHNIQUE: Color flow triplex imaging and compression Doppler was performed to evaluate both the deep and the superficial systems bilaterally. To evaluate the superficial system, the examination was performed in the upright position. Color-flow Doppler ultrasound and compression ultrasound were utilized. In addition, maneuvers were utilized to demonstrate reflux. FINDINGS: 1. DEEP VENOUS ULTRASOUND OF THE RIGHT LOWER EXTREMITY: Common Femoral Vein: Compressible, normal respiratory variation and augmented flow. Femoral Vein: Compressible, normal color flow and augmentation. Popliteal Vein: Compressible, normal augmentation. Deep Reflux: There is no evidence of reflux in the deep system in either the common femoral vein, superficial femoral or the popliteal vein. There is no evidence of a Sameul's cyst. 2. SUPERFICIAL ULTRASOUND WITH DOPPLER OF RIGHT LOWER EXTREMITY: GREAT SAPHENOUS VEIN: Saphenofemoral Junction: 0.6 cm; Reflux: 0 ms Proximal Thigh: 0.6 cm; Reflux: 0 ms Mid Thigh: 0.2 cm; Reflux: 0 ms Above Knee: 0.2 cm; Reflux: 0 ms At Knee: 0.2 cm; Reflux: 0 ms Below Knee: 0.2 cm; Reflux: 0 ms Mid Calf: 0.2 cm; Reflux: 0 ms Ankle: 0.2 cm; Reflux: 0 ms DUPLICATED MEDIAL GREAT SAPHENOUS VEIN: Diameter: None imaged Reflux: NA DUPLICATED LATERAL GREAT SAPHENOUS VEIN: Diameter: 0.2 cm Reflux: None SMALL SAPHENOUS VEIN: Saphenopopliteal Junction: 0.3 cm; Reflux: 0 ms Proximal: 0.4 cm; Reflux: 0 ms. There is wall calcification consistent with prior thrombophlebitis Distal: 0.4 cm; Reflux: 0 ms VEIN OF GIACOMINI: Size: NA Reflux: NA PERFORATORS: Location: Mid thigh extending into the great saphenous vein Size: 0.2 cm Reflux: 1020 ms VARICOSITIES: Location: None significant Size: NA Reflux: NA 3. DEEP VENOUS ULTRASOUND OF THE LEFT LOWER EXTREMITY: Common Femoral Vein: Compressible, normal respiratory variation and augmented flow. Femoral Vein: Chronic partially compressible segment in the mid superficial femoral vein which is unchanged compared to the prior exam Popliteal Vein: Compressible, normal augmentation. Deep Reflux: There is no evidence of reflux in the deep system in either the common femoral vein, superficial femoral or the popliteal vein. There is no evidence of a Samuel's cyst. 4. SUPERFICIAL ULTRASOUND WITH DOPPLER OF LEFT LOWER EXTREMITY: GREAT SAPHENOUS VEIN: Saphenofemoral Junction: 0.8 cm; Reflux: 0 ms Proximal Thigh: 0.5 cm; Reflux: 0 ms Mid Thigh: 0.5 cm; Reflux: 0 ms Above Knee: 0.4 cm; Reflux: 0 ms At Knee: 0.3 cm; Reflux: 0 ms Below Knee: 0.2 cm; Reflux: 0 ms Mid Calf: 0.3 cm; Reflux: 0 ms Ankle: 0.3 cm; Reflux: 368 ms DUPLICATED MEDIAL GREAT SAPHENOUS VEIN: Diameter: None imaged Reflux: NA DUPLICATED LATERAL GREAT SAPHENOUS VEIN: Diameter: None imaged Reflux: NA SMALL SAPHENOUS VEIN: Saphenopopliteal Junction: 0.3 cm; Reflux: 0 ms Proximal: 0.4 cm; Reflux: 0 ms Distal: 0.4 cm; Reflux: 0 ms VEIN OF GIACOMINI: Size: NA Reflux: NA PERFORATORS: Location: Distal calf Size: 0.3 cm Reflux: None VARICOSITIES: Location: Proximal calf Size: 0.4 cm Reflux: None US/US venous duplex LE BI IMPRESSION: Right: No significant venous insufficiency or reflux in the right lower extremity. Note is made of calcification within the small saphenous vein consistent with prior thrombophlebitis Left: No significant venous insufficiency or reflux in the left lower extremity. Varicose vein in the left calf without significant reflux. Stable chronic thrombosis of the mid superficial femoral vein
[2023-05-27 12:20] LABS: Basophils Absolute Auto 0.6 X10*3/uL (0.0-0.2); Basophils Percent Auto 1.6 % (0-2); Eosinophils Absolute Auto 0.4 X10*3/uL (0.0-0.4); Eosinophils Percent Auto 1.2 % (0-4); Hemoglobin 16.6 g/dl (12.0-16.0); Imm Gran Abs Auto 0.57 X10*3/uL (0.00-0.03); Imm Gran Pct Auto 1.7 % (0.0-0.4); Lymphocytes Absolute Auto 1.9 X10*3/uL (1.2-4.9); Lymphocytes Percent Auto 5.5 % (20-40); MANUAL DIFF FLAG SCAN; Mean Corpuscular HGB Conc 29.9 g/dl (31.0-35.0); Mean Corpuscular Hemoglobin 25.5 pg (27.0-33.0); Mean Corpuscular Volume 85.3 fL (80.0-98.0); Mean Platelet Volume 11.6 fL (9.4-12.3); Monocytes Absolute Auto 0.8 X10*3/uL (0.1-1.2); Monocytes Percent Auto 2.3 % (2-11); Neutrophils Absolute Auto 30.2 x10*3/uL (2.0-8.3); Neutrophils Percent Auto 87.7 % (45-73); Platelet Count 347 X10*3/uL (160-400); Red Blood Count 6.52 X10*6/uL (4.20-5.50); Red Cell Distribution Width 17.2 % (11.0-16.0); SCAN SMEAR FLAG 1
[2023-05-27 12:25] LABS: Hematocrit 55.6 % (37.0-47.0); White Blood Count 34.5 X10*3/uL (4.8-10.8)
[2023-05-27 13:46] LABS: SLIDE REVIEW VERIFIED
== END 2023-05-27 12:01 | disposition home or self-care (01) ==
LOC: HO.BBR 12:00
PROVIDERS: PCP Internal Medicine; Visit Provider Internal Medicine Medical Oncology
DX: I83.12 Varicose veins of left lower extremity with inflammation (principal); D45 Polycythemia vera
CPT/HCPCS: 36415; 85014; 85018; 85025; 93970; 99195

== ENCOUNTER 2023-06-16 15:04 | Outpatient (AMB) | payer MEDICARE, SELFPAY ==
--- NOTE | 2023-06-16 15:09 | A.OFFVIS_ITS ---
Intake Vital Signs 06/16/23 15:10 Height 5 ft 7 in Weight 234 lb BMI 36.6 Intake Visit Reasons: Follow Up 05/27 US Intake Note: follow up US 05/27/23 for chronic Left LE DVT and LE swelling. Pt states that left LE is only leg that bothers her, she has Left LE numbness, states that may be from her back surgery Accompanied by: Self / Same As Patient Allergies mold Adverse Reaction (Intermediate, Verified 06/16/23 15:15) GI UPSET animal dander Adverse Reaction (Mild, Verified 06/16/23 15:15) NASAL STUFFY HPI Follow Up 05/27 US HPI Details Very pleasant 67-year-old female presents for follow-up regarding venous insufficiency. She has a known history of a chronic DVT of the left lower extremity. She does have leg swelling. She appears to have it fairly well controlled with CircAid stockings. She has been fairly compliant with those. She now presents for routine follow-up with venous insufficiency testing. [facility] Medical History Arthritis Back pain Depression HTN (hypertension) JAK2 V617F mutation Thrombocytosis P. vera Surgical History Hx of nasal polypectomy History of back surgery (~2017) Hx of oophorectomy (~2009) History of esophagogastroduodenoscopy (EGD) (~2011) Hx of colonoscopy (~2012) Family History Father Heart disease Myocardial infarction Mother HTN (hypertension) Sister Polycythemia vera Social History Household Members: Spouse Housing: House Are you a primary pediatric critical care nurse to a significant other at home: No Do you presently have visiting nurse or other home services: No Alcohol intake: former Patient Tobacco Use Status: Former Tobacco user Quit Date: 04/14/2016 e-Cigarette/Vaping Use: Currently Using service: No Current occupational status: employed and disabled Current occupation: CAREGIVER Review of Systems Const Reports as per HPI ENT Reports no additional complaints Card Denies chest pain, Denies chest pain at rest and Denies chest pain with activity Resp Denies chest congestion and Denies cough GI Reports no additional complaints Musc Details: pain over varicosities, aching of lower extremities, swelling, cramping, heaviness and tiredness, itching Denies abnormal gait Skin/Breast Reports pruritus and Denies wounds Neuro Reports no additional complaints and Denies abnormal gait Psych Denies no additional complaints Physical Exam Vital Signs: BMI result Body Mass Index 36.6 Const General: cooperative, healthy appearing and comfortable Orientation/consciousness: oriented to person, oriented to place and oriented to time Neck Carotids: no bruits Chest Chest palpation & inspection: normal inspection of the chest and normal palpation of entire chest wall Resp Effort & Inspection: normal respiratory effort and able to speak in complete sentences Cardio Rate: regular rate Heart sounds: S1 normal heart sound present and S2 normal heart sound present Peripheral pulses: Peripheral pulses 2+ throughout GI Inspection: Yes normal to inspection Skin Other: +2 edema, General skin exam: dry skin Neuro General: oriented to person, oriented to place and oriented to time Extrem Right lower extremity: full ROM, normal capillary refill and edema Left lower extremity: full ROM, normal capillary refill and edema Psych Mental Status: mental status grossly normal Results Reviewed Results Reviewed: Brief summary of venous insufficiency testing is as follows: right great saphenous vein: negative right small saphenous vein: negative right accessory vein: none present left great saphenous vein: negative left small saphenous vein: negative left accessory vein: none present Please note there is no evidence of any venous aneurysms or significant tortuosity Assessment & Plan Assessment & Plan (1) Varicose veins of left lower extremity with inflammation: Code(s): I83.12 - Varicose veins of left lower extremity with inflammation Plan: In short patient is negative for any significant venous insufficiency. She does have underlying DVT which would be contributing to her deep reflux. At the current time no surgical intervention indicated. We did discuss routine conservative measures including compression, elevation, and exercise. The patient will follow up with us on an as-needed basis. Thank you for allowing us to assist in her care. If there are any questions or concerns please do not hesitate to contact us. Coding Level of Care Code Est Pt Level 4 (90576) Diagnoses Varicose veins of left lower extremity with inflammation I83.12
[2023-06-16 15:10] VITALS: BMI 36.6
== END 2023-06-16 15:50 | disposition home or self-care (01) ==
PROVIDERS: PCP Internal Medicine; Visit Provider Surgery Vascular Surgery
DX: I83.12 Varicose veins of left lower extremity with inflammation (principal)
CPT/HCPCS: 99213

== ENCOUNTER → 2023-06-16 15:04 | Outpatient (BNVA) | payer MEDICARE, SELFPAY | PROVIDERS: PCP Internal Medicine; Visit Provider Surgery Vascular Surgery | DX: I83.12 Varicose veins of left lower extremity with inflammation (principal); I82.502 Chronic embolism and thrombosis of unspecified deep veins of left lower extremity | CPT/HCPCS: 99212 ==

== ENCOUNTER 2023-06-30 12:52 | Outpatient (REF) | payer MEDICARE, SELFPAY ==
[2023-06-30 13:12] LABS: Basophils Absolute Auto 0.4 X10*3/uL (0.0-0.2); Basophils Percent Auto 1.4 % (0-2); Eosinophils Absolute Auto 0.5 X10*3/uL (0.0-0.4); Eosinophils Percent Auto 1.8 % (0-4); Hematocrit 49.8 % (37.0-47.0); Hemoglobin 14.7 g/dl (12.0-16.0); Imm Gran Abs Auto 0.21 X10*3/uL (0.00-0.03); Imm Gran Pct Auto 0.8 % (0.0-0.4); Lymphocytes Absolute Auto 1.2 X10*3/uL (1.2-4.9); Lymphocytes Percent Auto 4.5 % (20-40); MANUAL DIFF FLAG SCAN; Mean Corpuscular HGB Conc 29.5 g/dl (31.0-35.0); Mean Corpuscular Hemoglobin 23.9 pg (27.0-33.0); Mean Corpuscular Volume 81.1 fL (80.0-98.0); Mean Platelet Volume 10.6 fL (9.4-12.3); Monocytes Absolute Auto 0.4 X10*3/uL (0.1-1.2); Monocytes Percent Auto 1.6 % (2-11); Neutrophils Absolute Auto 23.8 x10*3/uL (2.0-8.3); Neutrophils Percent Auto 89.9 % (45-73); Platelet Count 279 X10*3/uL (160-400); Red Blood Count 6.14 X10*6/uL (4.20-5.50); Red Cell Distribution Width 15.9 % (11.0-16.0); SCAN SMEAR FLAG 1; White Blood Count 26.5 X10*3/uL (4.8-10.8)
[2023-06-30 13:42] LABS: SLIDE REVIEW VERIFIED
[2023-06-30 13:54] LABS: Alanine Aminotransferase 30 U/L (0-31); Albumin Level 4.1 g/dL (3.5-5.0); Alkaline Phosphatase 95 U/L (39-117); Anion Gap 10 (12-20); Aspartate Amino Transferase 21 U/L (5-31); Bilirubin Total 1.5 mg/dL (0.0-1.0); Blood Urea Nitrogen 10 mg/dL (9-16); Calcium 9.5 mg/dL (8.4-10.2); Carbon Dioxide 30 mmol/L (22-29); Chloride 106 mmol/L (96-108); Estimated Glomerular Filt Rate > 60; Glucose Random 88 mg/dL (60-115); Potassium 3.8 mmol/L (3.3-5.1); Sodium 142 mmol/L (135-145); Total Protein 6.7 g/dL (6.5-8.0)
== END 2023-06-30 12:53 | disposition home or self-care (01) ==
LOC: HO.BBR 12:52
PROVIDERS: PCP Internal Medicine; Visit Provider Internal Medicine Medical Oncology
DX: D45 Polycythemia vera (principal)
CPT/HCPCS: 36415; 80053; 85018; 85025; 99195

== ENCOUNTER 2023-08-04 12:57 | Outpatient (REF) | payer MEDICARE, SELFPAY ==
[2023-08-04 13:15] LABS: Basophils Percent Auto 1.6 % (0-2); Monocytes Percent Auto 1.8 % (2-11); SCAN SMEAR FLAG 1
[2023-08-04 13:17] LABS: Basophils Absolute Auto 0.5 X10*3/uL (0.0-0.2); Eosinophils Absolute Auto 0.5 X10*3/uL (0.0-0.4); Eosinophils Percent Auto 1.4 % (0-4); Hematocrit 49.3 % (37.0-47.0); Hemoglobin 14.6 g/dl (12.0-16.0); Imm Gran Abs Auto 0.51 X10*3/uL (0.00-0.03); Imm Gran Pct Auto 1.6 % (0.0-0.4); Lymphocytes Absolute Auto 1.5 X10*3/uL (1.2-4.9); Lymphocytes Percent Auto 4.7 % (20-40); MANUAL DIFF FLAG SCAN; Mean Corpuscular HGB Conc 29.6 g/dl (31.0-35.0); Mean Corpuscular Hemoglobin 23.9 pg (27.0-33.0); Mean Corpuscular Volume 80.6 fL (80.0-98.0); Monocytes Absolute Auto 0.6 X10*3/uL (0.1-1.2); NRBC Pct Auto 0.1 /100WBC (0.0-0.2); Neutrophils Absolute Auto 27.7 x10*3/uL (2.0-8.3); Neutrophils Percent Auto 88.9 % (45-73); Platelet Count 209 X10*3/uL (160-400); Red Blood Count 6.12 X10*6/uL (4.20-5.50); Red Cell Distribution Width 18.6 % (11.0-16.0)
[2023-08-04 13:25] LABS: PLT ABN DIST 1; White Blood Count 31.2 X10*3/uL (4.8-10.8)
[2023-08-04 13:43] LABS: SLIDE REVIEW VERIFIED
== END 2023-08-04 12:58 | disposition home or self-care (01) ==
LOC: HO.BBR 12:57
PROVIDERS: PCP Internal Medicine; Visit Provider Internal Medicine Medical Oncology
DX: D45 Polycythemia vera (principal)
CPT/HCPCS: 36415; 85014; 85018; 85025; 99195

== ENCOUNTER 2023-10-06 12:47 | Outpatient (REF) | payer MEDICARE, SELFPAY ==
[2023-10-06 13:07] LABS: Basophils Absolute Auto 0.5 X10*3/uL (0.0-0.2); Basophils Percent Auto 1.6 % (0-2); Eosinophils Absolute Auto 0.5 X10*3/uL (0.0-0.4); Eosinophils Percent Auto 1.5 % (0-4); Hematocrit 49.9 % (37.0-47.0); Hemoglobin 14.3 g/dl (12.0-16.0); Imm Gran Abs Auto 0.49 X10*3/uL (0.00-0.03); Imm Gran Pct Auto 1.6 % (0.0-0.4); Lymphocytes Absolute Auto 1.3 X10*3/uL (1.2-4.9); Lymphocytes Percent Auto 4.3 % (20-40); MANUAL DIFF FLAG SCAN; Mean Corpuscular HGB Conc 28.7 g/dl (31.0-35.0); Mean Corpuscular Hemoglobin 23.9 pg (27.0-33.0); Mean Corpuscular Volume 83.3 fL (80.0-98.0); Mean Platelet Volume 10.4 fL (9.4-12.3); Monocytes Absolute Auto 0.6 X10*3/uL (0.1-1.2); Monocytes Percent Auto 1.8 % (2-11); Neutrophils Absolute Auto 27.9 x10*3/uL (2.0-8.3); Neutrophils Percent Auto 89.2 % (45-73); Platelet Count 283 X10*3/uL (160-400); Red Blood Count 5.99 X10*6/uL (4.20-5.50); SCAN SMEAR FLAG 1
[2023-10-06 13:16] LABS: White Blood Count 31.2 X10*3/uL (4.8-10.8)
[2023-10-06 13:29] LABS: SLIDE REVIEW VERIFIED
[2023-10-06 14:03] LABS: Alanine Aminotransferase 38 U/L (0-31); Albumin Level 4.3 g/dL (3.5-5.0); Alkaline Phosphatase 108 U/L (39-117); Anion Gap 13 (12-20); Aspartate Amino Transferase 27 U/L (5-31); Bilirubin Total 1.4 mg/dL (0.0-1.0); Blood Urea Nitrogen 9 mg/dL (9-16); Calcium 9.5 mg/dL (8.4-10.2); Carbon Dioxide 27 mmol/L (22-29); Chloride 106 mmol/L (96-108); Estimated Glomerular Filt Rate > 60; Glucose Random 111 mg/dL (60-115); Sodium 142 mmol/L (135-145)
== END 2023-10-06 12:48 | disposition home or self-care (01) ==
LOC: HO.BBR 12:47
PROVIDERS: PCP Internal Medicine; Visit Provider Internal Medicine Medical Oncology
DX: D45 Polycythemia vera (principal)
CPT/HCPCS: 36415; 80053; 85014; 85018; 85025; 99195

== ENCOUNTER 2023-12-09 12:43 | Outpatient (REF) | payer MEDICARE, SELFPAY ==
[2023-12-09 12:59] LABS: Basophils Absolute Auto 0.5 X10*3/uL (0.0-0.2); Basophils Percent Auto 1.7 % (0-2); Eosinophils Absolute Auto 0.4 X10*3/uL (0.0-0.4); Eosinophils Percent Auto 1.4 % (0-4); Hematocrit 49.2 % (37.0-47.0); Hemoglobin 14.5 g/dl (12.0-16.0); Imm Gran Abs Auto 0.43 X10*3/uL (0.00-0.03); Imm Gran Pct Auto 1.4 % (0.0-0.4); Lymphocytes Absolute Auto 1.1 X10*3/uL (1.2-4.9); Lymphocytes Percent Auto 3.5 % (20-40); MANUAL DIFF FLAG SCAN; Mean Corpuscular HGB Conc 29.5 g/dl (31.0-35.0); Mean Corpuscular Hemoglobin 24.6 pg (27.0-33.0); Mean Corpuscular Volume 83.4 fL (80.0-98.0); Mean Platelet Volume 10.3 fL (9.4-12.3); Monocytes Absolute Auto 0.4 X10*3/uL (0.1-1.2); Monocytes Percent Auto 1.3 % (2-11); Neutrophils Absolute Auto 27.7 x10*3/uL (2.0-8.3); Neutrophils Percent Auto 90.7 % (45-73); Platelet Count 310 X10*3/uL (160-400); Red Cell Distribution Width 18.2 % (11.0-16.0); SCAN SMEAR FLAG 1
[2023-12-09 13:01] LABS: White Blood Count 30.5 X10*3/uL (4.8-10.8)
[2023-12-09 13:43] LABS: SLIDE REVIEW VERIFIED
== END 2023-12-09 12:44 | disposition home or self-care (01) ==
LOC: HO.BBR 12:43
PROVIDERS: PCP Internal Medicine; Visit Provider Internal Medicine Medical Oncology
DX: D45 Polycythemia vera (principal)
CPT/HCPCS: 36415; 85014; 85018; 85025; 99195

== ENCOUNTER 2024-01-31 12:06 | Outpatient (REF) | payer MEDICARE, SELFPAY ==
[2024-01-31 12:19] LABS: Basophils Absolute Auto 0.3 X10*3/uL (0.0-0.2); Basophils Percent Auto 1.3 % (0-2); Eosinophils Absolute Auto 0.3 X10*3/uL (0.0-0.4); Eosinophils Percent Auto 1.1 % (0-4); Hematocrit 48.2 % (37.0-47.0); Hemoglobin 14.3 g/dl (12.0-16.0); Imm Gran Abs Auto 0.27 X10*3/uL (0.00-0.03); Imm Gran Pct Auto 1.2 % (0.0-0.4); Lymphocytes Absolute Auto 1.1 X10*3/uL (1.2-4.9); Lymphocytes Percent Auto 4.8 % (20-40); MANUAL DIFF FLAG SCAN; Mean Corpuscular HGB Conc 29.7 g/dl (31.0-35.0); Mean Corpuscular Hemoglobin 24.8 pg (27.0-33.0); Mean Corpuscular Volume 83.7 fL (80.0-98.0); Mean Platelet Volume 11.1 fL (9.4-12.3); Monocytes Absolute Auto 0.4 X10*3/uL (0.1-1.2); Monocytes Percent Auto 1.6 % (2-11); Neutrophils Absolute Auto 20.2 x10*3/uL (2.0-8.3); Platelet Count 230 X10*3/uL (160-400); Red Blood Count 5.76 X10*6/uL (4.20-5.50); Red Cell Distribution Width 16.7 % (11.0-16.0); SCAN SMEAR FLAG 1; White Blood Count 22.5 X10*3/uL (4.8-10.8)
[2024-01-31 12:40] LABS: SLIDE REVIEW VERIFIED
[2024-01-31 13:02] LABS: Alanine Aminotransferase 38 U/L (0-31); Albumin Level 4.3 g/dL (3.5-5.0); Alkaline Phosphatase 102 U/L (39-117); Anion Gap 12 (12-20); Aspartate Amino Transferase 30 U/L (5-31); Bilirubin Total 1.6 mg/dL (0.0-1.0); Blood Urea Nitrogen 10 mg/dL (9-16); Calcium 9.6 mg/dL (8.4-10.2); Carbon Dioxide 28 mmol/L (22-29); Chloride 105 mmol/L (96-108); Estimated Glomerular Filt Rate > 60; Glucose Random 119 mg/dL (60-115); Potassium 3.9 mmol/L (3.3-5.1); Sodium 141 mmol/L (135-145); Total Protein 6.8 g/dL (6.5-8.0)
== END 2024-01-31 12:07 | disposition home or self-care (01) ==
LOC: HO.BBR 12:06
PROVIDERS: PCP Internal Medicine; Visit Provider Internal Medicine Medical Oncology
DX: D45 Polycythemia vera (principal)
CPT/HCPCS: 36415; 80053; 85014; 85018; 85025; 99195

== ENCOUNTER 2024-04-05 13:45 | Outpatient (REF) | payer MEDICARE, SELFPAY ==
[2024-04-05 14:03] LABS: Basophils Absolute Auto 0.4 X10*3/uL (0.0-0.2); Basophils Percent Auto 1.5 % (0-2); Eosinophils Absolute Auto 0.4 X10*3/uL (0.0-0.4); Eosinophils Percent Auto 1.4 % (0-4); Hematocrit 47.6 % (37.0-47.0); Imm Gran Abs Auto 0.24 X10*3/uL (0.00-0.03); Lymphocytes Absolute Auto 1.2 X10*3/uL (1.2-4.9); Lymphocytes Percent Auto 4.8 % (20-40); MANUAL DIFF FLAG SCAN; Mean Corpuscular HGB Conc 29.4 g/dl (31.0-35.0); Mean Corpuscular Hemoglobin 24.5 pg (27.0-33.0); Mean Corpuscular Volume 83.4 fL (80.0-98.0); Mean Platelet Volume 12.7 fL (9.4-12.3); Monocytes Absolute Auto 0.4 X10*3/uL (0.1-1.2); Monocytes Percent Auto 1.7 % (2-11); Neutrophils Absolute Auto 22.1 x10*3/uL (2.0-8.3); Neutrophils Percent Auto 89.6 % (45-73); Platelet Count 243 X10*3/uL (160-400); Red Blood Count 5.71 X10*6/uL (4.20-5.50); Red Cell Distribution Width 17.3 % (11.0-16.0); SCAN SMEAR FLAG 1; White Blood Count 24.6 X10*3/uL (4.8-10.8)
[2024-04-05 14:22] LABS: SLIDE REVIEW VERIFIED
== END 2024-04-05 13:46 | disposition home or self-care (01) ==
LOC: HO.BBR 13:45
PROVIDERS: PCP Internal Medicine; Visit Provider Internal Medicine Medical Oncology
DX: D45 Polycythemia vera (principal)
CPT/HCPCS: 36415; 85018; 85025; 99195

== ENCOUNTER 2024-07-06 12:51 | Outpatient (REF) | payer MEDICARE, SELFPAY ==
--- OUTSIDE RECORDS SUMMARY | 2024-07-06 13:22 | XMS_ITS | Clinical Summary ---
Author Organization [facility] it Address [address] [place] [address] Care Team Providers Care Overhead Line Worker Name Role Phone Andre Huertas MD Primary Care Provider [phone] Surgical History Surgery Date Site/Laterality Comments BACK SURGERY 2018 PROCEDURE:BACK SURGERY Medical History Medical History Date Comments Blood disorder DX:Blood disorde r Cancer (CMS/HCC) DX:Cancer (HCC) Ovarian cancer (CMS/HCC) DX:Ovar frannie cancer (HCC) Social History Tobacco Use Types Packs/Day Years Used Date Smoking Tobacco: Never Assessed Alcohol Use Standard Drinks/Week Comments Not Currently 0 (1 standard drink = 0.6 oz pur e alcohol) Comments Unknown Sex and Gender Information Value Date Recorded Sex Assigned at Not on file Legal Sex Female 3:03 PM EST Gender Identity Not on file Sexual Orientation Not on file Obstetrics History Last Filed Vital Signs Vital Sign Reading Time Taken Comments Blood Pressure 169/101 04/27/2023 1:13 PM EST Sitting Right arm Pulse - - Temperature - - Respiratory Rate - - Oxygen Saturation - - Inhaled Oxygen Concentration - - Weight 106 kg (234 lb) 04/27/2023 1:13 PM EST Height 170.2 cm (5' 7 ) 04/27/2023 1:13 PM EST Body Mass Index 36.65 04/27/2023 1:13 PM EST Plan of Treatment Health Maintenance Due Date Last Done Comments DTaP,Tdap,and Td Vaccines (1 - Tdap) 1975 Pneumococcal Vaccine: 50+ Ye ars (1 of 1 - PCV) 2006 Zoster Vaccines (1 of 2) 2006 Breast Cancer Screening 04/05/2021 04/05/2019 Cholesterol Screening (Lipid Panel) 06/18/2023 Colorectal Cancer Screening: Colonoscopy 06/18/2023 Depression Screening 06/18/2023 Falls Risk Assessment 06/18/2023 Hepatitis C Screening 06/18/2023 Osteoporosis Screening (Bone Density Screening) 06/18/2023 Social Influencers of Health Screening 06/18/2023 Hypertension/CHF/CAD Annual BMP Blood Test 07/03/2023 COVID-19 Vaccine (2023-2 5 season) 2024 Influenza Vaccine (#1) 2024 RSV Immunization Patients 60 + Years Old (1 - 1-dose 75+ series) 2031 HIB Vaccines Aged Out No longer eligi ble based on patient's age to complete this topic HPV Vaccines Aged Out No longer eligi ble based on patient's age to complete this topic Hepatitis A Vaccines Aged Out No long er eligible based on patient's age to complete this topic Hepatitis B Vaccines Aged Out No long er eligible based on patient's age to complete this topic IPV Vaccines Aged Out No longer eligi ble based on patient's age to complete this topic MMR Vaccines Aged Out No longer eligi ble based on patient's age to complete this topic Meningococcal ACWY Vaccine Aged Out N o longer eligible based on patient's age to complete this topic Meningococcal B Vacine Aged Out No lo nger eligible based on patient's age to complete this topic RSV Immunization Patients Un brayden 20 months Aged Out No longer eligible b ased on patient's age to complete this topic Varicella Vaccines Aged Out No longer eligible based on patient's age to complete this topic Procedures Procedure Name Priority Date/Time Associated Diagnosis Comments [facility] SCREENING DIGITAL Routine 04/05/2019 5:15 PM EST Encounter for screening mammogram for malignant neoplasm of breast from Last 3 Months or Most Recently Relevant to Health Maintenance Results * GERARD SCREENING DIGITAL (04/05/2019 5:15 PM EST) Anatomical Region Laterality Modality Mammography 04/05/2019 9:43 AM EST Narrative 04/05/2019 5:[address] [facility] Diagnostic Imaging Department [address] [place] [address] [id number] Patient: ??QUINCY MITCHELL ?/Age/Sex: 1955 - 63 - F Unit#: ??[id number] ? Location/Status: ??SPDIMAM/REG CLI ? Mnemonic/Ordering Site: ??DIGSC/SPMAM Ordering Physician: ??VAMSI WARD PAC Gerard Screening Digital - 04/05/19 - 1019 History: Bilateral breast cancer screening. Technique: Bilateral digital mammography. Conventional CC and MLO projections with tomosynthesis MLO views and computer-aided detection Comparison: Outside mammography 11/04/2017, 11/26/2014 and 08/15/2013 [facility]. Findings: Breast tissue is mostly ??fatty replaced (category A density) (as calculated by [employer] software). There is no suspicious group of microcalcification, no suspicious mass, architectural distortion or suspicious change in breast tissue discrete oval opacity overlying posterior medial right breast projects on the skin surface on tomography and was visible on previous mammograms, most conspicuous 11/16/2014 study when lesion was marked as a skin lesion. Impression: ??No evidence of malignancy. BIRADS category 1, negative examination, 3341F 78493, 08409 Note: Patient information entered ??into a reminder system with a target due date for the next mammogram; [place] II [id number] Dictating Physician: ??VINOD MAGANA MD Electronically Signed by: ??VINOD MAGANA MD Dic Date/Time: ??04/05/19 2876 Sign date/Time: ??11/21/19 1715 Procedure Note Vinod Magana - 05/04/2022 [facility] Diagnostic Imaging Department [address] [place] [address] [phone] Patient: QUINCY MITCHELL /Age/Sex: 1955 - 63 - F Unit#: [id number] [facility] Mnemonic/Ordering Site: [facility] Ordering Physician: VAMSI WARD Gerard Screening Digital - 04/05/19 - 1019 History: Bilateral breast cancer screening. Technique: Bilateral digital mammography. Conventional CC and MLOprojections with tomosynthesis MLO views and computer-aided detection Comparison: Outside mammography 11/04/2017, 11/26/2014 and [facility] [place]. Findings: Breast tissue is mostly fatty replaced (category A density) (ascalculated by [employer] software). There is no suspicious group of microcalcification, no suspicious mass, architectural distortion or suspicious change in breast tissue discreteoval opacity overlying posterior medial right breast projects on the skinsurface on tomography and was visible on previous mammograms, most conspicuous11/16/2014 study when lesion was marked as a skin lesion. Impression: No evidence of malignancy. BIRADS category 1, negative examination, 3341F 96599, 27563 Note: Patient information entered into a reminder system with a targetdue date for the next mammogram; RI II [id number] Dictating Physician: VINOD MAGANA MD Electronically Signed by: VINOD MAGANA MD Dic Date/Time: 04/05/191713 Sign date/Time: 04/05/191714 Vamsi NEUMANN IMG BI PROCEDURES Final Res ult from Last 3 Months or Most Recently Relevant to Health Maintenance Care Teams Overhead Line Worker Relationship Specialty Start Date End Date Andre Huertas MD [address] [place] [address] [address] [place], [place] PCP - General Internal Medicine 07/05/17
--- OUTSIDE RECORDS SUMMARY | 2024-07-06 13:22 | XMS_ITS | Clinical Summary ---
Author Organization [facility] Address [address] [place] [address] Care Team Providers Care Client Consultant Name Role Phone Andre Huertas MD Primary Care Provider + [phone] Medications Medication Sig Dispensed Refills Start Date End Date Status lisinopril (PRINIVIL,ZESTRIL) tablet 20 mg Take 1 tablet (20 mg total) by mouth daily. 0 Active gabapentin (NEURONTIN) 300 MG capsule Take 1 capsule (300 mg total) by mouth 3 (three) times a day. 0 Active apixaban (ELIQUIS) 5 MG TABS tablet Take 1 tablet (5 mg total) by mouth every 12 (twelve) hours. 0 Active montelukast (SINGULAIR) 10 MG tablet Take 1 tablet (10 mg total) by mouth every night at bedtime. 0 Active sertraline (ZOLOFT) 50 MG tablet Take 1 tablet (50 mg total) by mouth daily. 0 Active hydroCHLOROthiazide (MICROZIDE) 12.5 MG capsule Take 1 capsule (12.5 mg total) by mouth daily. 0 Active diazePAM (VALIUM) 2 MG tablet Take 1 tablet (2 mg total) by mouth every 6 (six) hours as needed for anxiety. 0 Active acetaminophen-codeine (TYLENOL #3) 300-30 MG per tablet Take 1 tablet by mouth every 4 (four) hours as needed for pain. 0 Active traZODone (DESYREL) 50 MG tablet Take 1 tablet (50 mg total) by mouth every night at bedtime. 0 Active Active Problems Problem Noted Date Diagnosed Date Class 2 obesity 04/27/2023 04/27/2023 HTN (hypertension) 04/27/2023 04/27/2023 Mixed emotional features as adjustment reaction 04/27/2023 04/27/2023 Polycythemia 04/27/2023 04/27/2023 Social History Tobacco Use Types Packs/Day Years Used Date Smoking Tobacco: Never Assessed Tobacco Cessation:Counseling Given: Not Answered Alcohol Use Standard Drinks/Week Comments Not Currently 0 (1 standard drink = 0.6 oz pur e alcohol) Sex and Gender Information Value Date Recorded Sex Assigned at Female 04/27/2023 12:34 PM EST Gender Identity Not on file Sexual Orientation Not on file Job Start Date Occupation Industry Not on file Not on file Not on file Last Filed Vital Signs Vital Sign Reading Time Taken Comments Blood Pressure 169/101 04/27/2023 1:13 PM EST Pulse - - Temperature - - Respiratory Rate - - Oxygen Saturation - - Inhaled Oxygen Concentration - - Weight 106.1 kg (234 lb) 04/27/2023 1:13 PM EST Height 170.2 cm (5' 7 ) 04/27/2023 1:13 PM EST Body Mass Index 36.65 04/27/2023 1:13 PM EST Plan of Treatment Health Maintenance Due Date Last Done Comments Hepatitis C Screening 1955 COVID-19 Vaccine (#1) 01/07/1956 Depression Screening 1968 BMI Counseling 1974 DTap / Tdap / Td (1 - Tdap) 1975 Colon Cancer Screening (Colonoscopy) 2001 Breast Cancer Screening (Mammogram) 2006 Shingrix-Zoster Vaccine (1 of 2) 2006 Fall Risk Assessment 2021 Osteoporosis Screening (DEXA Scan) 2021 Pneumococcal Vaccine (1 of 1 - PCV) 2021 Influenza Vaccine (#1) 2024 Preventative Health Evaluation 04/27/2024 04/27/2023 RSV Adult > 60+ Yrs or Pregn ant (1 - 1-dose 75+ series) 2031 Hepatitis B Vaccines Aged Out No long er eligible based on patient's age to complete this topic RSV Ped < 20 months Aged Out No longe r eligible based on patient's age to complete this topic Care Teams Client Consultant Relationship Specialty Start Date End Date Andre Huertas MD [address] [place] [address] [address] [place] [address] PCP - General Geriatric Medicine 04/28/23
--- OUTSIDE RECORDS SUMMARY | 2024-07-06 13:22 | XMS_ITS ---
Author Name [facility] Organization Unknown History of Medication Use Medication Directions Dispensed Refills Start Date End Date Stat us traZODone (DESYREL) 50 MG tablet Take 1 tablet (50 mg total) by mouth every night at bedtime. active sertraline (ZOLOFT) 50 MG tablet Take 1 tablet (50 mg total) by mouth daily. active montelukast (SINGULAIR) 10 MG tablet Take 1 tablet (10 mg total) by mouth every night at bedtime. active gabapentin (NEURONTIN) 300 MG capsule Take 1 capsule (300 mg total) by mouth 3 (three) times a day. active rosuvastatin (CRESTOR) 10 MG tablet TAKE 1 TABLET BY MOUTH EVERYDAY AT BEDTIME 08/21/2023 active hydroCHLOROthiazide (MICROZIDE) 12.5 MG capsule Take 1 capsule (12.5 mg total) by mouth daily. active diazepam (VALIUM) 2 MG tablet Take 2 mg by mouth daily as needed. 08/30/2023 active acetaminophen-codeine (TYLENOL #3) 300-30 MG per tablet Take 1 tablet by mouth every 4 (four) hours as needed for pain. active Problems Problem Status Onset Date Problem Type Date of Resolution Source Polycythemia active 2023-04-27 ProblemAct [facility] HTN (hypertension) active 2023-04-27 ProblemAct [facility] Mixed emotional features as adjustment reaction active 2023-04-27 ProblemAct [facility] Class 2 obesity active 2023-04-[address] [facility] Post-menopausal active EncounterDiagnosisAct [facility] Abdominal distension active EncounterDiagnosisAct [facility] MG
== END 2024-07-06 12:52 | disposition home or self-care (01) ==
LOC: HO.BBR 12:51
PROVIDERS: PCP Internal Medicine; Visit Provider Internal Medicine Medical Oncology
DX: D45 Polycythemia vera (principal)
CPT/HCPCS: 85018; 99195

== ENCOUNTER 2024-10-03 12:53 | Outpatient (REF) | payer MEDICARE, SELFPAY ==
--- OUTSIDE RECORDS SUMMARY | 2024-10-03 13:30 | XMS_ITS | Clinical Summary ---
Author Organization [facility] Address [address] [place] [address] Care Team Providers Care Scroll Machine Operator Name Role Phone Andre Huertas MD Primary Care Provider + Allergies No known active allergies Medications Eliquis 5 MG tablet Take 5 mg by mouth 2 (two) times a day. 08/14/2023 Active diazepam (VALIUM) 2 MG tablet Take 2 mg by mouth daily as needed. 08/30/2023 Active gabapentin (NEURONTIN) 300 MG capsule TAKE 1 CAPSULE BY MOUTH EVERYDAY AT BEDTIME 08/02/2023 Active hydroCHLOROthia zide (HYDRODIURIL) 12.5 MG tablet Take 12.5 mg by mouth daily. 07/09/2023 Active lisinopril (PRINIVIL,ZeSTR IL) 20 MG tablet Take 20 mg by mouth 2 (two) times a day. 07/01/2023 Active montelukast (SINGULAIR) 10 MG tablet Take 10 mg by mouth daily. 07/01/2023 Active rosuvastatin (CRESTOR) 10 MG tablet TAKE 1 TABLET BY MOUTH EVERYDAY AT BEDTIME 08/21/2023 Active sertraline (ZOLOFT) 50 MG tablet Take 50 mg by mouth daily. 08/27/2023 Active traMADol (ULTRAM) 50 MG tablet 09/07/2023 Active traZODone (DESYREL) 50 MG tablet Take 50-100 mg by mouth nightly. 07/16/2023 Active Active Problems No known active problems Encounters Date Type Department Care Team Description 08/23/2024 11:45 AM EDT Office Visit [facility] [address] [phone] Hector Kuhn MD Wiggins, Miriam K, PA-C Acute bacterial bronchitis (Primary Dx) 07/24/2024 11:30 AM EDT Office Visit [facility] [address] [address] Hector Kuhn MD Prucker, Haylie A, PA-C Herpes zoster without complication (Primary Dx) 07/24/2024 Travel from Last 3 Months Social History Tobacco Use Types Packs/Day Years Used Date Smoking Tobacco: Never Smokeless Tobacco: Never Tobacco Cessation:Counseling Given: Not Answered Alcohol Use Standard Drinks/Week Comments Never 0 (1 standard drink = 0.6 oz pur e alcohol) Comments Unknown Sex and Gender Information Value Date Recorded Sex Assigned at Female 07/19/2024 7:52 AM EST Legal Sex Female 6:29 PM EST Gender Identity Female 07/19/2024 7:52 AM EST Sexual Orientation Heterosexual (straight) 07/19 7:52 AM EST Last Filed Vital Signs Vital Sign Reading Time Taken Comments Blood Pressure 133/84 08/23/2024 11:57 AM EDT Pulse 96 08/23/2024 11:57 AM EDT Temperature 36.7 ??C (98 ??F) 08/23/2024 11:57 AM EDT Respiratory Rate 16 08/23/2024 11:57 AM EDT Oxygen Saturation 98% 08/23/2024 11:57 AM EDT Inhaled Oxygen Concentration - - Weight 106 kg (234 lb) 07/24/2024 11:39 AM EDT Height 170.2 cm (5' 7 ) 07/24/2024 11:39 AM EDT Body Mass Index 36.65 07/24/2024 11:39 AM EDT Plan of Treatment Health Maintenance Due Date Last Done Comments Hepatitis C Virus Screening 1955 DTaP/Tdap/Td Vaccines (1 - Tdap) 1975 Mammogram 1996 Colonoscopy 2001 Pneumococcal Vaccines 50+ (1 of 1 - PCV) 2006 Zoster (Shingles) Vaccine (1 of 2) 2006 DXA Bone Density (Females,Ag es 65 and older) 2021 COVID-19 Vaccine (1 - 2024-2 5 season) 2024 Influenza Vaccine 12/14/2024 RSV Vaccine 60 years and old er and Patients (1 - 1-dose 75+ series) 2031 Hepatitis B Vaccines Aged Out No long er eligible based on patient's age to complete this topic Insurance * Guarantor: Asia Mitchell Account Type Relation to Patient Date of Phone Billing Address Personal/Family Self 1955 [address] [place] [address] MEDICARE PART A & B [facility] MEDICARE * Guarantor: Asia Mitchell Account Type Relation to Patient Date of Phone Billing Address Personal/Family Self 1955 [address] [place] [address] [place] [id number] * Guarantor: Asia Mitchell Account Type Relation to Patient Date of Phone Billing Address Personal/Family Self 1955 [address] [place] [address] [facility] MEDICARE MEDICARE PART A & B Care Teams Scroll Machine Operator Relationship Specialty Start Date End Date Andre Huertas MD [address] [facility] [address] [place] [address] PCP - General 09/08/23
--- OUTSIDE RECORDS SUMMARY | 2024-10-03 13:30 | XMS_ITS | Clinical Summary ---
Author Organization [facility] Address [address] [place] [address] Care Team Providers Care Railroad Signal And Switch Operator Name Role Phone Andre Huertas MD Primary Care Provider + [phone] Medications Medication Sig Dispensed Refills Start Date [...] age to complete this topic Care Teams Railroad Signal And Switch Operator Relationship Specialty Start Date End Date Andre Huertas MD [address] [place] [address] [address] [place] [address] PCP - General Geriatric Medicine 04/28/23
--- OUTSIDE RECORDS SUMMARY | 2024-10-03 13:30 | XMS_ITS | Clinical Summary ---
[facility] [address] [place] [address] Care Team Providers Care Field Marketing Associate Name Role Phone Andre Huertas MD Primary Care Provider [phone] Surgical History Surgery Date Site/Laterality Comments BACK SURGERY 2018 PROCEDURE:BACK SURGERY Medical History Medical History Date Comments Blood disorder DX:Blood disorde r Cancer (CMS/HCC V24, CMS/HCC V28) DX:Cancer (HCC) Ovarian cancer (CMS/HCC V24, CMS/HCC V28) DX:Ovarian cancer (HCC) Social History Tobacco Use Types [...] Vaccine (2023-2 5 season) 2024 Influenza Vaccine (Season Ended) 2025 RSV Immunization Adult Patie nts (1 - 1-dose 75+ series) 2031 HIB [...] age to complete this topic Meningococcal B Vaccine Aged Out No l onger eligible based on patient's age to complete this topic RSV Immunization Patients Un brayden 20 months Aged Out No longer eligible b ased on patient's age to complete this topic Varicella Vaccines Aged Out No longer eligible based on patient's age to complete this topic Procedures Procedure Name Priority Date/Time Associated Diagnosis Comments [facility] SCREENING DIGITAL Routine 04/05/2019 5:15 PM EST Encounter for screening mammogram for malignant neoplasm of breast from Last 3 Months or Most Recently Relevant to Health Maintenance Results * GERARD SCREENING DIGITAL (04/05/2019 5:15 PM EST) Anatomical Region Laterality Modality Mammography 04/05/2019 9:43 AM EST Narrative 04/05/2019 5:15 PM EST [facility] Diagnostic Imaging Department [address] [place] [address] [id number] Patient: ??QUINCY MITCHELL ?/Age/Sex: 1955 - 63 - F Unit#: ??[id number] ? Location/Status: ??SPDIMAM/REG CLI ? Mnemonic/Ordering Site: ??DIGSC/SPMAM Ordering Physician: ??VAMSI WARD PAC Gerard Screening Digital - 04/05/19 - 1019 History: Bilateral breast cancer screening. Technique: Bilateral digital mammography. Conventional CC and MLO projections with tomosynthesis MLO views and computer-aided detection Comparison: Outside mammography 11/04/2017, 11/26/2014 and 08/15/2013 [facility]. Findings: Breast tissue is mostly ??fatty replaced (category A density) (as calculated by BUKApara software). There is no suspicious group of microcalcification, no suspicious mass, architectural distortion or suspicious change in breast tissue discrete oval opacity overlying posterior medial right breast projects on the skin surface on tomography and was visible on previous mammograms, most conspicuous 11/16/2014 study when lesion was marked as a skin lesion. Impression: ??No evidence of malignancy. BIRADS category 1, negative examination, 3341F 77604, 60991 Note: Patient information entered ??into a reminder system with a target due date for the next mammogram; PQ[place] II 6262O Dictating Physician: ??VINOD MAGANA MD Electronically Signed by: ??VINOD MAGANA MD Dic Date/Time: ??04/05/19 1714 Sign date/Time: ??04/05/19 1715 Procedure Note Vinod Magana - 05/04/2022 [facility] Diagnostic Imaging Department [address] [place] [address] Patient: QUINCY MITCHELL /Age/Sex: 1955 - 63 - F Unit#: [id number] Location/Status: [facility] CLI Mnemonic/Ordering Site: [facility] Ordering Physician: VAMSI WARD [facility] Gerard Screening Digital - 04/05/19 - 1019 History: Bilateral breast cancer screening. Technique: Bilateral digital mammography. Conventional CC and MLOprojections with tomosynthesis MLO views and computer-aided detection Comparison: Outside mammography 11/04/2017, 11/26/2014 and 08/15/2013[facility] [place]. Findings: Breast tissue is mostly fatty replaced (category A density) (ascalculated by [employer] Volpara software). There is no suspicious group of microcalcification, no suspicious mass, architectural distortion or suspicious change in breast tissue discreteoval opacity overlying posterior medial right breast projects on the skinsurface on tomography and was visible on previous mammograms, most conspicuous11/16/2014 study when lesion was marked as a skin lesion. Impression: No evidence of malignancy. BIRADS category 1, negative examination, 3341F 07373, 87208 Note: Patient information entered into a reminder system with a targetdue date for the next mammogram; PQRI II 7308R Dictating Physician: VINOD MAGANA MD Electronically Signed by: VINOD MAGANA MD Dic Date/Time: 04/05/191713 Sign date/Time: 04/05/191714 Vamsi NEUMANN IMG BI PROCEDURES Final Res ult from Last 3 Months or Most Recently Relevant to Health Maintenance Care Teams Field Marketing Associate Relationship Specialty Start Date End Date Andre Huertas MD [address] [place] [address] [address] [place], [place] PCP - General Internal Medicine 07/05/17
== END 2024-10-03 12:54 | disposition home or self-care (01) ==
LOC: HO.BBR 12:53
PROVIDERS: PCP Internal Medicine; Visit Provider Internal Medicine Medical Oncology
DX: D45 Polycythemia vera (principal)
CPT/HCPCS: 85014; 85018; 99195

== ENCOUNTER 2025-01-15 12:45 | Outpatient (REF) | payer MEDICARE, SELFPAY ==
--- OUTSIDE RECORDS SUMMARY | 2025-01-15 13:59 | XMS_ITS ---
Author Name [facility] Organization Unknown History of Medication Use Medication Directions Dispensed Refills Start Date End Date Stat us amoxicillin-clavulanate (AUGMENTIN) 875-125 MG per tablet Take 1 tablet by mouth 2 (two) times a day. 08/23/2024 active valACYclovir (VALTREX) 1000 MG tablet Take 1 tablet (1,000 mg total) by mouth 3 (three) times a day. 07/24/2024 active diazepam (VALIUM) 2 MG tablet Take 2 mg by mouth daily as needed. 08/30/2023 active rosuvastatin (CRESTOR) 10 MG tablet TAKE 1 TABLET BY MOUTH EVERYDAY AT BEDTIME 08/21/2023 active acetaminophen-codeine (TYLENOL #3) 300-30 MG per tablet Take 1 tablet by mouth every 4 (four) hours as needed for pain. active gabapentin (NEURONTIN) 300 MG capsule Take 1 capsule (300 mg total) by mouth 3 (three) times a day. active hydroCHLOROthiazide (MICROZIDE) 12.5 MG capsule Take 1 capsule (12.5 mg total) by mouth daily. active montelukast (SINGULAIR) 10 MG tablet Take 1 tablet (10 mg total) by mouth every night at bedtime. active sertraline (ZOLOFT) 50 MG tablet Take 1 tablet (50 mg total) by mouth daily. active traZODone (DESYREL) 50 MG tablet Take 1 tablet (50 mg total) by mouth every night at bedtime. active Problems Problem Status Onset Date Problem Type Date of Resolution Source Abdominal distension active EncounterDiagnosisAct CTTHNE MG Post-menopausal active EncounterDiagnosisAct CTTHNEMG Class 2 obesity active 2023-04-[address] THNEMG Mixed emotional features as adjustment reaction active 2023-04-27 ProblemAct CTTHNEMG HTN (hypertension) active 2023-04-27 ProblemAct CTTHNEMG Polycythemia active 2023-04-27 ProblemAct CTTHN EMG Acute bacterial bronchitis active EncounterDiagnosisAct CCT Encounters Encounter Type Encounter Reason Primary Diagnosis Location Date Ambulatory Cough Cough spotflux 08/23/2024 Ambulatory Shingles? Shingles? spotflux 07/24/2024 Ambulatory OTHER OTHER spotflux 09/12/2023 Ambulatory Encounter for general adult medical examination without abnormal findings Encounter for general adult medical examination without abnormal findings [facility] 05/11/2023 Ambulatory Encounter for general adult medical examination without abnormal findings Encounter for general adult medical examination without abnormal findings [facility] 04/27/2023 Care Team Organization Name Specialty Phone Email Start Date End Da te [facility] TONNY MENA Primary Care 09/13/2023 025 [employer] T[facility]NY ORLEANS Primary Care 09/09/2023 [facility] Primary Care 11/27/2024 [facility] 11/27/2024 [facility] Primary Care 04/27/2023 04/27/2023
--- OUTSIDE RECORDS SUMMARY | 2025-01-15 13:59 | XMS_ITS | Clinical Summary ---
Author Organization [facility] Address [address] [place] [address] Care Team Providers Care Rn Complex Care Name Role Phone Andre Huertas MD Primary Care Provider [phone] Medications Medication Sig Dispensed Refills Start Date [...] Vaccine (1 of 1 - PCV) 2021 Preventative Health Evaluation 04/27/2024 04/27/2023 Influenza Vaccine (#1) 2025 RSV Adult > 60+ Yrs or Pregn ant (1 - 1-dose 75+ series) 2031 Hepatitis B Vaccines Aged Out No long er eligible based on patient's age to complete this topic RSV Ped < 20 months Aged Out No longe r eligible based on patient's age to complete this topic Care Teams Rn Complex Care Relationship Specialty Start Date End Date Andre Huertas MD [address] [place] [address] [address] [place] [address] PCP - General Geriatric Medicine 04/28/23
--- OUTSIDE RECORDS SUMMARY | 2025-01-15 13:59 | XMS_ITS | Clinical Summary ---
Author Organization [facility] Address [address] [place] [address] Care Team Providers Care Industrial Hygiene Engineer Name Role Phone Andre Huertas MD Primary [...] Active Active Problems No known active problems Social History Tobacco Use Types Packs/Day Years [...] 96 08/23/2024 11:57 AM EDT Temperature 36.7 C (98 F) 08/23/2024 11:57 AM EDT Respiratory Rate 16 08/23/2024 11:57 AM EDT Oxygen Saturation 98% 08/23/2024 11:57 AM EDT Inhaled Oxygen Concentration - - Weight 106 kg (234 lb) 07/24/2024 11:39 AM EDT Height 170.2 cm (5' 7 ) 07/24/2024 11:39 AM EDT Body Mass Index 36.65 07/24/2024 11:39 AM EDT Plan of Treatment Health Maintenance Due Date Last Done Comments Advance Care Planning 1955 Hepatitis C Virus Screening 1955 DTaP/Tdap/Td Vaccines (1 - Tdap) 1975 Mammogram 1996 Colonoscopy 2001 Pneumococcal Vaccines 50+ (1 of 1 - PCV) 2006 Zoster (Shingles) Vaccine (1 of 2) 2006 DXA Bone Density (Females,Ag es 65 and older) 2021 COVID-19 Vaccine ( - 2023-2 5 season) 2024 Influenza Vaccine 12/14/2024 RSV Vaccine 60 years and old er and Patients (1 - 1-dose 75+ series) 2031 Hepatitis B Vaccines Aged Out No long er eligible based on patient's age to complete this topic Insurance * Guarantor: Asia Mitchell Account Type Relation to Patient Date of Phone Billing Address Personal/Family Self 1955 [address] [place] [address] MEDICARE PART A & B [facility] MEDICARE Member Subscriber Plan / Payer (Ef fective 2024-) Name:Asia Mitchell Relation to Subscriber:Self Name:Asia Mitchell Payer ID:[id number] (NAIC) Type:Not on file Address: [place] [phone] [facility] MEDICARE Member Subscriber Plan / Payer (Ef fective 2024-) Name:Asia Mitchell Relation to Subscriber:Self Name:Asia Mitchell Payer ID:[id number] (NAIC) Type:Not on file Address: [place] [phone] [facility] MEDICARE MEDICARE PART A & B Care Teams Industrial Hygiene Engineer Relationship Specialty Start Date End Date Andre Huertas MD [address] [facility] [address] [place] [address] PCP - General 09/08/23
--- OUTSIDE RECORDS SUMMARY | 2025-01-15 13:59 | XMS_ITS | Clinical Summary ---
[facility] Organization [facility] Address [address] [place] [address] Care Team Providers Care Maintenance Tech Name Role Phone Andre Huertas MD Primary Care Provider [phone] Surgical History Surgery Date Site/Laterality Comments BACK [...] Panel) 06/18/2023 Colorectal Cancer Screening: Colonoscopy 06/18/2023 Falls Risk Assessment 06/18/2023 Hepatitis C Screening 06/18/2023 Osteoporosis Screening (Bone Density Screening) 06/18/2023 Social Influencers of Health Screening 06/18/2023 Hypertension/CHF/CAD Annual BMP Blood Test 07/03/2023 COVID-19 Vaccine ( - 2023-2 5 season) 2024 Depression Screening 05/16/2024 Influenza Vaccine (#1) 2025 RSV Immunization Adult Patie nts (1 [...] Procedure Name Priority Date/Time Associated Diagnosis Comments [facility] SCREENING DIGITAL Routine 04/05/2019 5:15 PM EST Encounter for screening mammogram for malignant neoplasm of breast from Last 3 Months or Most Recently Relevant to Health Maintenance Results * GERARD SCREENING DIGITAL (04/05/2019 5:15 PM EST) Anatomical Region Laterality Modality Mammography 04/05/2019 9:43 AM EST Narrative 04/05/2019 5:15 PM EST [facility] Diagnostic Imaging Department [address] [place] [address] Patient: QUINCY MITCHELL /Age/Sex: 1955 - 63 - F Unit#: [id number] Location/Status: [facility] CLI Mnemonic/Ordering Site: [facility] Ordering Physician: VAMSI WARD PAC Gerard Screening Digital - 04/05/19 - 1019 History: Bilateral breast cancer screening. Technique: Bilateral digital mammography. Conventional CC and MLO projections with tomosynthesis MLO views and computer-aided detection Comparison: Outside mammography 11/04/2017, 11/26/2014 and 08/15/2013 [facility] [place]. Findings: Breast tissue is mostly fatty replaced (category A density) (as calculated by [employer] Volpara software). There is no suspicious group [...] malignancy. BIRADS category 1, negative examination, 3341F 37850, 89644 Note: Patient information entered into a reminder system with a target due date for the next mammogram; PQRI II 7075F Dictating Physician: VINOD MAGANA MD Electronically Signed by: VINOD MAGANA MD Dic Date/Time: 04/05/191713 Sign date/Time: 04/05/191714 Procedure Note Vinod Magana - 05/04/2022 [facility] Diagnostic Imaging Department [address] [place] [address] Patient: QUINCY MITCHELL /Age/Sex: 1955 - 63 - F Unit#: [id number] Location/Status: SPDIMAM/REG CLI Mnemonic/Ordering Site: [facility] Ordering Physician: VAMSI WARD Gerard Screening Digital - 04/05/19 - 1019 History: Bilateral breast cancer screening. Technique: Bilateral digital mammography. Conventional CC and MLOprojections with tomosynthesis MLO views and computer-aided detection Comparison: Outside mammography 11/04/2017, 11/26/2014 [facility] [place]. Findings: Breast tissue is mostly fatty replaced (category A density) (ascalculated by [employer] Volpara software). There is no suspicious group of microcalcification, no suspicious mass, architectural distortion or suspicious change in breast tissue discreteoval opacity overlying posterior medial right breast projects on the skinsurface on tomography and was visible on previous mammograms, most conspicuous11/16/2014 study when lesion was marked as a skin lesion. Impression: No evidence of malignancy. BIRADS category 1, negative examination, 3341F 85798, 22001 Note: Patient information entered into a reminder system with a targetdue date for the next mammogram; PQRI II 7004I Dictating Physician: VINOD MAGANA MD Electronically Signed by: VINOD MAGANA MD Dic Date/Time: 04/05/191713 Sign date/Time: 11/21/19 1715 Vamsi NEUMANN IMG BI PROCEDURES Final Res ult from Last 3 Months or Most Recently Relevant to Health Maintenance Care Teams Maintenance Tech Relationship Specialty Start Date End Date Andre Huertas MD [address] [facility] [address] [place], [place] PCP - General Internal Medicine 07/05/17
== END 2025-01-15 12:46 | disposition home or self-care (01) ==
LOC: HO.BBR 12:45
PROVIDERS: PCP Internal Medicine; Visit Provider Internal Medicine Medical Oncology
DX: D45 Polycythemia vera (principal)
CPT/HCPCS: 85018; 99195

== ENCOUNTER 2025-04-16 12:57 | Outpatient (REF) | payer MEDICARE, SELFPAY ==
--- OUTSIDE RECORDS SUMMARY | 2025-04-16 14:51 | XMS_ITS | Clinical Summary ---
Author Organization [facility] Address [address] [place] [address] Care Team Providers Care Apprentice Machinist Outside Name Role Phone Andre Huertas MD Primary Care Provider + Allergies No known active allergies Medications Eliquis 5 MG tablet Take 5 mg by mouth 2 (two) times a day. 4 Active diazepam (VALIUM) 2 MG tablet Take 2 mg by mouth daily as needed. 4 Active gabapentin (NEURONTIN) 300 MG capsule TAKE 1 CAPSULE BY MOUTH EVERYDAY AT BEDTIME 4 Active hydroCHLOROthi azide (HYDRODIURIL) 12.5 MG tablet Take 12.5 mg by mouth daily. 4 Active lisinopril (PRINIVIL,ZeST RIL) 20 MG tablet Take 20 mg by mouth 2 (two) times a day. 4 Active montelukast (SINGULAIR) 10 MG tablet Take 10 mg by mouth daily. 4 Active rosuvastatin (CRESTOR) 10 MG tablet TAKE 1 TABLET BY MOUTH EVERYDAY AT BEDTIME 4 Active sertraline (ZOLOFT) 50 MG tablet Take 50 mg by mouth daily. 4 Active traMADol (ULTRAM) 50 MG tablet 4 Active polyethylene glycol-electro lytes (NuLYTELY, TRILYTE) 420 g solutionIndica tions:Rectal bleeding Take as directed for Colonoscopy/GI Procedure. See administration instructions. 4000 mL 5 Active Active Problems Problem Noted Date Diagnosed Date Abdominal discomfort 02/13/2025 Rectal bleeding 02/13/2025 Encounters Date Type Department Care Team Description 02/13/2025 1:30 PM EDT Office Visit [address] [place] [phone] SusiCandis Davis APRN Rectal bleeding (Primary Dx); Abdominal discomfort from Last 3 Months Social History Tobacco [...] Sign Reading Time Taken Comments Blood Pressure 146/70 02/13/2025 1:34 PM EDT Pulse 73 02/13/2025 1:34 PM EDT Temperature 36.7 C (98 F) 08/23/2024 11:57 AM EDT Respiratory Rate 16 08/23/2024 11:57 AM EDT Oxygen Saturation 95% 02/13/2025 1:34 PM EDT Inhaled Oxygen Concentration - - Weight 109 kg (241 lb) 02/13/2025 1:34 PM EDT Height 170.2 cm (5' 7 ) 02/13/2025 1:34 PM EDT Body Mass Index 37.75 02/13/2025 1:34 PM EDT Plan of Treatment Upcoming Encounters Date Type Department Care Team (Late st Contact Info) Description 04/17/2025 8:00 AM EST Office Visit [facility] [address] [facility] [address] [place] [phone] Azalia Luis, BAILEE [address] [place] [address] Health Maintenance Due Date Last Done Comments Advance Care Planning 1955 Hepatitis C Virus Screening 1955 DTaP/Tdap/Td Vaccines (1 - Tdap) 1975 Mammogram 1996 Colonoscopy 2001 Pneumococcal Vaccines 50+ (1 of 1 - PCV) 2006 Zoster (Shingles) Vaccine (1 of 2) 2006 DXA Bone Density (Females,Ag es 65 and older) 2021 Influenza Vaccine 12/14/2024 COVID-19 Vaccine (1 - 2023-2 5 season) 2025 RSV Vaccine 50 years and old er and Patients (1 - 1-dose 75+ series) 2031 Hepatitis B Vaccines Aged Out No long er eligible based on patient's age to complete this topic Insurance MEDICARE PART A & B [facility] MEDICARE * Guarantor: Asia Mitchell Account Type Relation to Patient Date of Phone Billing Address Personal/Family Self 1955 [address] [place] [address] [facility] MEDICARE * Guarantor: Asia Mitchell Account Type Relation to Patient Date of Phone Billing Address Personal/Family Self 1955 [address] [place] [address] [facility] MEDICARE MEDICARE PART A & B Care Teams Apprentice Machinist Outside Relationship Specialty Start Date End Date Andre Huertas MD [address] [facility] [address] [place] [address] PCP - General 09/08/23
--- OUTSIDE RECORDS SUMMARY | 2025-04-16 14:51 | XMS_ITS | Clinical Summary ---
Author Organization [facility] Address [address] [place] [address] Care Team Providers Care Front Desk Receptionist Name Role Phone Andre Huertas MD Primary Care Provider + [phone] Medications Medication Sig Dispensed Refills Start Date [...] age to complete this topic Care Teams Front Desk Receptionist Relationship Specialty Start Date End Date Andre Huertas MD [address] [place] [address] [address] [place] [address] PCP - General Geriatric Medicine 04/28/23
== END 2025-04-16 12:58 | disposition home or self-care (01) ==
LOC: HO.BBR 12:57
PROVIDERS: PCP Internal Medicine; Visit Provider Internal Medicine Medical Oncology
DX: D45 Polycythemia vera (principal)
CPT/HCPCS: 85018; 99195